=== PATIENT | male | born 1930 | race Caucasian/White ===

== ENCOUNTER 2019-07-14 20:04 | Inpatient (IN) | payer OTHER ==
[2019-07-14 20:20] VITALS: BMI 28.3
[2019-07-14 22:22] LABS: BASO % 0.3 % (0-2.0); EOS % 0.6 % (0-4.5); HEMATOCRIT 29.5 % (35.4-49); HEMOGLOBIN 9.6 GM/dL (11.7-16.9); LYMPH % 6.1 % (8-40); MCH 28.8 pg (25.7-33.7); MCHC 32.6 g/dl (32.0-35.9); MEAN CELL VOLUME 88.3 fl (80-96); MEAN PLT VOLUME 8.8 fl (7.5-11.1); MONO % 6.9 % (3.8-10.2); NEUT % 86.1 % (42.8-82.8); PLATELET COUNT 227 K/MM3 (134-434); RBC 3.35 M/mm3 (4.00-5.60); RDW 18.9 % (11.9-15.9)
[2019-07-14 22:45] LABS: INR 1.48 (0.83-1.09); PROTHROMBIN TIME (PATIENT) 17.5 SEC (9.7-13.0)
[2019-07-14 22:47] LABS: ACTIVATED PTT 41.9 SECONDS (25.2-36.5)
[2019-07-14 22:55] LABS: BILIRUBIN,TOTAL 10.4 mg/dL (0.2-1)
[2019-07-14 22:56] LABS: BLOOD UREA NITROGEN 28.6 mg/dL (7-18); CALCIUM 7.3 mg/dL (8.5-10.1); CREATININE 4.7 mg/dL (0.55-1.3); POTASSIUM 3.8 mmol/L (3.5-5.1); TOT PROT 5.9 g/dl (6.4-8.2)
[2019-07-14] MEDS ORDERED: SODIUM CHLORIDE 1,000 ML IV STA (23:08)
--- NOTE | 2019-07-14 23:15 | PDOC ---
Documentation entered by Jenni Uribe SCRIBE, acting as scribe for Carol Melendez MD. Carol Melendez MD: This documentation has been prepared by the Jojo bangura Sammi, SCRIBE, under my direction and personally reviewed by me in its entirety. I confirm that the documentation accurately reflects all work, treatment, procedures, and medical decision making performed by me. History of Present Illness - General Chief Complaint: Respiratory Stated Complaint: PNUEMONIA Time Seen by Provider: 07/14/19 21:24 - History of Present Illness Initial Comments: 07/14/19 21:25 The patient is an 88 year old male with PMH pancreatitis, type II DM, chronic kidney disease, anemia, CAD, BPH, GERD, who presents from [facility] for evaluation of left lower lobe infiltrate on xray. The patient denies any complaints at this time. The patient is DNR/DNI. Past History - Past Medical History Allergies/Adverse Reactions: Allergies Allergy/AdvReac Type Severity Reaction Status Date / Time Penicillins Allergy Verified 07/14/19 20:20 Home Medications: Ambulatory Orders Aspirin 81 mg PO DAILY 07/14/19 Atorvastatin Ca [Lipitor] 80 mg PO HS 07/14/19 Cholecalciferol (Vitamin D3) [Vitamin D3] 50,000 unit PO WEEKLY 07/14/19 Clopidogrel Bisulfate [Plavix] 75 mg PO DAILY 07/14/19 Ferrous Sulfate [Feosol] 325 mg PO DAILY 07/14/19 Furosemide [Lasix] 40 mg PO DAILY 07/14/19 Glipizide [Glucotrol Xl] 5 mg PO DAILY 07/14/19 Hydrocortisone 1% Cream [Hytone 1% Cream -] 1 applic TP QID 07/14/19 Insulin Glargine,Hum.rec.anlog [Lantus (nf)] 0 units SQ HS 07/14/19 Insulin Lispro [Humalog] 100 unit SQ TID 07/14/19 Metoprolol Tartrate [Lopressor -] 25 mg PO DAILY 07/14/19 Multivitamins [Tab-A-Vit -] 1 tab PO DAILY 07/14/19 Pantoprazole Sodium 40 mg PO DAILY 07/14/19 Sitagliptin Phosphate [Januvia] 25 mg PO DAILY 07/14/19 Tamsulosin HCl [Flomax] 0.4 mg PO DAILY 07/14/19 predniSONE [Deltasone -] 40 mg PO DAILY 07/14/19 Cardiac Disorders: Yes (CAD) COPD: No Diabetes: Yes GI Disorders: Yes (PANCREATITIS) Disorders: Yes (DIALYSIS) HTN: Yes Hypercholesterolemia: Yes - Psycho Social/Smoking Cessation Hx Smoking History: Never smoked Review of Systems - Review of Systems Comments:: 07/14/19 21:55 CONSTITUTIONAL: Absent: fever, no chills, no fatigue EYES: Absent: visual changes ENT: Absent: ear pain, no sore throat CARDIOVASCULAR: Absent: chest pain, no palpitations RESPIRATORY: Absent: cough, no SOB GI: Absent: abdominal pain, no nausea, no vomiting, no constipation, no diarrhea GENITOURINARY: Absent: dysuria, no frequency, no hematuria MUSKULOSKELETAL: Absent: back pain, no arthralgia, no myalgia SKIN: Absent: rash NEURO: Absent: headache *Physical Exam - Vital Signs Last Vital Signs Temp Pulse Resp BP Pulse Ox 97.2 F L 81 18 90/55 L 91 L 07/14/19 20:16 07/14/19 20:16 07/14/19 20:16 07/14/19 20:16 07/14/19 20:16 - Physical Exam Comments: 07/14/19 21:50 GENERAL: alert, conversant, jaundice 88 year old male, no acute distress Well-appearing, well-nourished. No apparent distress. HEENT: +icteric sclera Normocephalic, atraumatic. PERRL, EOM intact. NECK: No JVD CARDIOVASCULAR: Normal S1, S2. Regular rate and rhythm. PULMONARY: Clear to auscultation bilaterally. ABDOMEN: Soft, non-distended, non-tender. EXTREMITIES: +LE 1+ pitting edema Normal ROM in all four extremities. SKIN: +extremities and torso covered in macularpapular rash +jaundice Warm, dry. NEUROLOGICAL: alert and oriented x3 No focal neurological deficits. ED Treatment Course - LABORATORY CBC & Chemistry Diagram: 07/14/19 22:00 07/14/19 22:00 Medical Decision Making - Medical Decision Making 07/14/19 23:43 This 88-year-old male was brought in by ambulance from [facility] because of findings on a chest x-ray Left lower lobe infiltrate/effusion with development of a right lower lobe infiltrate and effusion. 1.3 cm dense nodule in the lateral right midlung The residential note said cold symptoms Patient is obviously jaundiced and has a maculopapular rash over most of his body. When asked if he has any complaints he does not have any specific complaints at this time he feels fine he does not have nausea or vomiting or diarrhea or shortness of breath chest pain according to him The residential papers did not reflect the reason for his jaundice and so I asked Dr. 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 and they found common bile duct obstruction but not a specific cause was not found , ? pancreatic cancer 07/14/19 23:54 Patient just recently developed kidney failure and has gone to dialysis for 6 weeks on Wednesdays and Fridays. Dr. Sarah Campos will make sure he has dialysis on Saturday07/15/19 01:24 07/15/19 01:29 07/15/19 01:34 Patient received IV antibiotics First troponin was 0.44 and will be repeated. Patient denies any chest pain or shortness of breath 07/15/19 01:35 His electrolytes show sodium of 131 and a normal potassium 3.8 07/15/19 01:48 elevated troponin ,will repeat troponin ,do repeat bgm admit tele OBS Discharge - Discharge Information Problems reviewed: Yes Clinical Impression/Diagnosis: Jaundice, persistent, Elevated LFTs, ESRD (end stage renal disease) on dialysis , Elevated troponin, Pleural effusion Condition: Fair - Admission Yes - Follow up/Referral Referrals: Maria L Robles [Primary Care Provider] - - Patient Discharge Instructions - Post Discharge Activity
--- NOTE | 2019-07-15 04:35 | HP ---
Admitting History and Physical - Primary Care Physician PCP: Dr. Viveros - Admission Chief Complaint: NH - xray with new pneumonia History of Present Illness: 88 year old male with PMH pancreatitis, type II DM, chronic kidney disease, anemia, CAD, BPH, GERD, who presents from [facility] for evaluation of left lower lobe infiltrate on xray. The patient denies any complaints at this time. Patient stated he received antibiotics at [place] and he developed rash to entire body. The patient is DNR/DNI. History Source: Patient Limitations to Obtaining History: No Limitations - Past Medical History Cardiovascular: Yes: CAD, Hyperlipdemia Gastrointestinal: Yes: GERD Renal/: Yes: Renal Inusuff, BPH, Hemodialysis Heme/Onc: Yes: Anemia Endocrine: Yes: Diabetes Mellitus, Other (pancreatitis) - Past Surgical History Past Surgical History: Yes: AV Fistula/Graft - Smoking History Smoking history: Never smoked - Alcohol/Substance Use History of Substance Use: reports: None - Social History Usual Living Arrangement: Yes: Senior Living ADL: Support Services History of Recent Travel: No Home Medications - Allergies Allergies/Adverse Reactions: Allergies Allergy/AdvReac Type Severity Reaction Status Date / Time Penicillins Allergy Verified 07/14/19 20:20 - Home Medications Home Medications: Ambulatory Orders Aspirin 81 mg PO DAILY 07/14/19 Atorvastatin Ca [Lipitor] 80 mg PO HS 07/14/19 Cholecalciferol (Vitamin D3) [Vitamin D3] 50,000 unit PO WEEKLY 07/14/19 Clopidogrel Bisulfate [Plavix] 75 mg PO DAILY 07/14/19 Ferrous Sulfate [Feosol] 325 mg PO DAILY 07/14/19 Furosemide [Lasix] 40 mg PO DAILY 07/14/19 Glipizide [Glucotrol Xl] 5 mg PO DAILY 07/14/19 Hydrocortisone 1% Cream [Hytone 1% Cream -] 1 applic TP QID 07/14/19 Insulin Glargine,Hum.rec.anlog [Lantus (nf)] 0 units SQ HS 07/14/19 Insulin Lispro [Humalog] 100 unit SQ TID 07/14/19 Metoprolol Tartrate [Lopressor -] 25 mg PO DAILY 07/14/19 Multivitamins [Tab-A-Vit -] 1 tab PO DAILY 07/14/19 Pantoprazole Sodium 40 mg PO DAILY 07/14/19 Sitagliptin Phosphate [Januvia] 25 mg PO DAILY 07/14/19 Tamsulosin HCl [Flomax] 0.4 mg PO DAILY 07/14/19 predniSONE [Deltasone -] 40 mg PO DAILY 07/14/19 Family Medical History Family History: Denies Review of Systems - Review of Systems Constitutional: reports: No Symptoms Eyes: reports: No Symptoms HENT: reports: No Symptoms Neck: reports: No Symptoms Cardiovascular: reports: No Symptoms Respiratory: reports: Cough Gastrointestinal: reports: No Symptoms Genitourinary: reports: No Symptoms Breasts: reports: No Symptoms Reported Musculoskeletal: reports: No Symptoms Integumentary: reports: Rash Neurological: reports: No Symptoms Endocrine: reports: No Symptoms Hematology/Lymphatic: reports: No Symptoms Psychiatric: reports: No Symptoms Physical Examination Vital Signs: Vital Signs Temperature 97.2 F L 07/14/19 20:16 Pulse Rate 85 07/15/19 04:07 Respiratory Rate 18 07/15/19 04:07 Blood Pressure 108/48 L 07/15/19 04:07 O2 Sat by Pulse Oximetry (%) 96 07/15/19 04:07 Constitutional: Yes: No Distress, Calm Eyes: Yes: Conjunctiva Clear, EOM Intact HENT: Yes: Atraumatic, Normocephalic Neck: Yes: Supple, Trachea Midline Cardiovascular: Yes: Regular Rate and Rhythm Respiratory: Yes: Regular, CTA Bilaterally Gastrointestinal: Yes: Normal Bowel Sounds, Soft Musculoskeletal: Yes: WNL Extremities: Yes: WNL Edema: No Peripheral Pulses WNL: Yes Integumentary: Yes: Other (maculopapular rash over most of his body) Neurological: Yes: Alert, Oriented Labs: CBC, BMP 07/14/19 22:00 07/14/19 22:00 Imaging - Results Chest X-ray: Report Reviewed (no acute infiltrate noted) Problem List - Problems (1) Elevated troponin Code(s): R79.89 - OTHER SPECIFIED ABNORMAL FINDINGS OF BLOOD CHEMISTRY (2) Elevated LFTs Code(s): R94.5 - ABNORMAL RESULTS OF LIVER FUNCTION STUDIES (3) ESRD (end stage renal disease) on dialysis Code(s): N18.6 - END STAGE RENAL DISEASE; Z99.2 - DEPENDENCE ON RENAL DIALYSIS (4) Jaundice, persistent Code(s): R17 - UNSPECIFIED JAUNDICE (5) Pleural effusion Code(s): J90 - PLEURAL EFFUSION, NOT ELSEWHERE CLASSIFIED (6) Elevated lactic acid level Code(s): R79.89 - OTHER SPECIFIED ABNORMAL FINDINGS OF BLOOD CHEMISTRY (7) Diabetes Code(s): E11.9 - TYPE 2 DIABETES MELLITUS WITHOUT COMPLICATIONS (8) Anemia Code(s): D64.9 - ANEMIA, UNSPECIFIED (9) CAD (coronary artery disease) Code(s): I25.10 - ATHSCL HEART DISEASE OF [place] CORONARY ARTERY W/O ANG PCTRS (10) HTN (hypertension) Code(s): I10 - ESSENTIAL (PRIMARY) HYPERTENSION (11) HLD (hyperlipidemia) Code(s): E78.5 - HYPERLIPIDEMIA, UNSPECIFIED (12) BPH (benign prostatic hyperplasia) Code(s): N40.0 - BENIGN PROSTATIC HYPERPLASIA WITHOUT LOWER URINRY TRACT SYMP (13) GERD (gastroesophageal reflux disease) Code(s): K21.9 - GASTRO-ESOPHAGEAL REFLUX DISEASE WITHOUT ESOPHAGITIS (14) Rash and nonspecific skin eruption Code(s): R21 - RASH AND OTHER NONSPECIFIC SKIN ERUPTION Assessment/Plan 88 year old male with PMH pancreatitis, type II DM, chronic kidney disease, anemia, CAD, BPH, GERD, who presents from [facility] for evaluation of left lower lobe infiltrate on xray. The patient denies any complaints at this time. # Elevated troponin admit tele OBS - #1 troponin was 0.44, # 2 (0.40) - no acute CP - follow up cardiology # Elevated LFTs # Jaundice persistent -as per ED conversation, had juandiced when at [facility] found common bile duct obstruction, ? pancreatic cancer -AST: 264, ALT: 161, Alkaline phos: 804 -Total bili: 10.4 -follow up GI # Elevated lactic acid - 2.6 resolved post 1 L IVF, #2 (1.2) # Pleural Effusion - no acute CP/SOB - CXR: show vascualr congestion, no acute infiltrate identified - fluid restriction # macupapular rash liekly allergy reaction ? pt not sure which abx - no acute reaction at this time - if needed consider prednisone / benadryl if needed # ESRD on HD (MWF) - dialysis as scheduled # DM -Glipizide 5 mg PO DAILY -Sitagliptin Phosphate 25 mg PO DAILY -monitor BGM -novolog sliding scale # Anemia - Ferrous Sulfate 325 mg PO DAILY -monitor H/H trend # CAD #HTN/HLD -Atorvastatin Ca 80 mg PO HS -Clopidogrel Bisulfate 75 mg PO DAILY -Furosemide 40 mg PO DAILY -Metoprolol Tartrate 25 mg PO DAILY # BPH -Tamsulosin HCl 0.4 mg PO DAILY # GERD -Pantoprazole Sodium 40 mg PO DAILY Dispo: tele obs Diet: renal, IFEANYI/NCS VTE: TEDs, early obs Visit type - Emergency Visit Emergency Visit: Yes ED Registration Date: 07/15/19 Care time: The patient presented to the Emergency Department on the above date and was hospitalized for further evaluation of their emergent condition. - New Patient This patient is new to me today: Yes Date on this admission: 07/15/19 - Critical Care Critical Care patient: No
[2019-07-15] MEDS ORDERED: ACETAMINOPHEN 325 MG TABLET (FP) PO PRN ×3 (04:59→20:42)
[2019-07-15] MEDS ORDERED: INSULIN SLIDING SCALE (NOVOLOG) 1 VIAL SQ SCH ×2 (07:00→16:30)
[2019-07-15] MEDS ORDERED: glipiZIDE-XL 5 MG TAB.ER.24 PO SCH (07:00)
[2019-07-15] MEDS ORDERED: TAMSULOSIN HCL 0.4 MG CAP PO SCH (08:30)
[2019-07-15] MEDS ORDERED: PANTOPRAZOLE 40 MG TABLET PO SCH (10:00)
[2019-07-15] MEDS ORDERED: CLOPIDOGREL BISULFATE 75 MG TABLET (FP) PO SCH (10:00)
[2019-07-15] MEDS ORDERED: FERROUS SO4 325 MG TABLET (FP) PO SCH ×2 (10:00→10:30)
[2019-07-15] MEDS ORDERED: ASPIRIN 81 MG CHEWABLE TABLETS PO SCH (10:00)
[2019-07-15] MEDS ORDERED: METOPROLOL TARTRATE 25 MG TABLET (FP) PO SCH (10:00)
[2019-07-15] MEDS ORDERED: PATIENT'S OWN MEDICATION (NON-FORMULARY) (Ferrous Sulfate [Feosol] 325 MG) PO SCH (10:00)
[2019-07-15] MEDS ORDERED: FUROSEMIDE 40 MG TABLET (FP) PO SCH (10:00)
--- NOTE | 2019-07-15 10:07 | PN ---
Progress Note, Physician Chief Complaint: AWAKE ALERT COMFORTABLE DENIES CHEST PAIN REPORTS HAVING SOB BUT IMPROVING - Current Medication List Current Medications: Active Medications Acetaminophen (Tylenol -) 650 mg PO Q6H PRN PRN Reason: PAIN LEVEL 1-5 Aspirin (Asa -) 81 mg PO DAILY [facility] Atorvastatin Calcium (Lipitor -) 80 mg PO HS [facility] Clopidogrel Bisulfate (Plavix -) 75 mg PO DAILY [facility] Ferrous Sulfate (Feosol -) 325 mg PO DAILY [facility] Furosemide (Lasix -) 40 mg PO DAILY [facility] Glipizide (Glucot[facility] Xl -) [facility] Last Admin: 07/15/19 09:00 Dose: Not Given Insulin Aspart (Novolog Vial Sliding Scale -) [facility]; Protocol Last Admin: 07/15/19 06:47 Dose: Not Given Metoprolol Tartrate (Lopressor -) 25 mg PO DAILY [facility] Pantoprazole Sodium (Protonix -) 40 mg PO DAILY [facility] Sitagliptin Phosphate (Januvia -) 25 mg PO [facility] Last Admin: 07/15/19 09:01 Dose: Not Given Tamsulosin HCl (Flomax -) 0.4 mg PO DAILY@0830 [facility] Last Admin: 07/15/19 09:04 Dose: 0.4 mg - Objective Vital Signs: Vital Signs Temperature 98 F 07/15/19 09:00 Pulse Rate 77 07/15/19 09:00 Respiratory Rate 18 07/15/19 09:00 Blood Pressure 89/46 L 07/15/19 09:00 O2 Sat by Pulse Oximetry (%) 97 07/15/19 09:00 Constitutional: Yes: Mild Distress Cardiovascular: Yes: Pulse Irregular Respiratory: Yes: Cough, Diminished, On Nasal O2 Gastrointestinal: Yes: Normal Bowel Sounds Genitourinary: Yes: Other Edema: No Integumentary: Yes: WNL Neurological: Yes: Pre-Existing Deficit Labs: CBC, BMP 07/14/19 22:00 07/14/19 22:00 INR, PTT INR 1.48 (0.83-1.09) H 07/14/19 22:00 Problem List - Problems (1) Anemia Code(s): D64.9 - ANEMIA, UNSPECIFIED (2) BPH (benign prostatic hyperplasia) Code(s): N40.0 - BENIGN PROSTATIC HYPERPLASIA WITHOUT LOWER URINRY TRACT SYMP (3) CAD (coronary artery disease) Code(s): I25.10 - ATHSCL HEART DISEASE OF [place] CORONARY ARTERY W/O ANG PCTRS (4) ESRD (end stage renal disease) on dialysis Code(s): N18.6 - END STAGE RENAL DISEASE; Z99.2 - DEPENDENCE ON RENAL DIALYSIS (5) Elevated LFTs Code(s): R94.5 - ABNORMAL RESULTS OF LIVER FUNCTION STUDIES (6) Elevated lactic acid level Code(s): R79.89 - OTHER SPECIFIED ABNORMAL FINDINGS OF BLOOD CHEMISTRY (7) Pleural effusion Code(s): J90 - PLEURAL EFFUSION, NOT ELSEWHERE CLASSIFIED Assessment/Plan NEPHROLOGY EVAL HD TODAY CARDIAC EVAL ON TELEMETRY DVT PROPHYLAXIS
[2019-07-15] MEDS ORDERED: PANTOPRAZOLE 40 MG TABLET ONE (10:15)
--- NOTE | 2019-07-15 12:15 | CONSULT ---
Consult - text type - Consultation Consultation Note: Renal consult for ERNIE on dialysis/ESRD This is a 88 year old gentleman with history of CKD with ERNIE now on dialysis (6 weeks), biliary obstruction with indwelling biliary drain, pancreatitis, anemia , CAD, BPH, GERD who who presented from [place] with diffuse erythematous rash after being on antibiotics for suspected PNA. Seen and examined in the ER. He currently offers no acute complaints. Last dialysis was Saturday. Has skin rash but puritic. Denies any shortness of breath, chest pain, fever, or chills. Makes a small amount of urine. PMHx: as above Allergies: PCN Social Hx: No T/A/D ROS: as per HPI, all other pertinent ros negative Home Medications Medication Instructions Recorded Aspirin 81 mg PO DAILY 07/14/19 Atorvastatin Ca [Lipitor] 80 mg PO HS 07/14/19 Cholecalciferol (Vitamin D3) 50,000 unit PO WEEKLY 07/14/19 [Vitamin D3] Clopidogrel Bisulfate [Plavix] 75 mg PO DAILY 07/14/19 Ferrous Sulfate [Feosol] 325 mg PO DAILY 07/14/19 Furosemide [Lasix] 40 mg PO DAILY 07/14/19 Glipizide [Glucotrol Xl] 5 mg PO DAILY 07/14/19 Hydrocortisone 1% Cream [Hytone 1% 1 applic TP QID 07/14/19 Cream -] Insulin Glargine,Hum.rec.anlog 0 units SQ HS 07/14/19 [Lantus (nf)] Insulin Lispro [Humalog] 100 unit SQ TID 07/14/19 Metoprolol Tartrate [Lopressor -] 25 mg PO DAILY 07/14/19 Multivitamins [Tab-A-Vit -] 1 tab PO DAILY 07/14/19 Pantoprazole Sodium 40 mg PO DAILY 07/14/19 Sitagliptin Phosphate [Januvia] 25 mg PO DAILY 07/14/19 Tamsulosin HCl [Flomax] 0.4 mg PO DAILY 07/14/19 predniSONE [Deltasone -] 40 mg PO DAILY 07/14/19 Vital Signs Temperature 98 F 07/15/19 09:00 Pulse Rate 77 07/15/19 09:00 Respiratory Rate 18 07/15/19 09:00 Blood Pressure 89/46 L 07/15/19 09:00 O2 Sat by Pulse Oximetry (%) 97 07/15/19 11:00 Intake & Output 07/12/19 07/13/19 07/14/19 07/15/19 23:59 23:59 23:59 23:59 Weight 74.843 kg NAD awake and alert neck supple, no JVD RRR CTA, no rales or wheeze soft NT/ND + erythemous rash on chest right IJ tunneled HD catheter right sided abmoinal drain no LE edema, clubbing or cyanosis CBC, BMP 07/14/19 22:00 07/14/19 22:00 Current Medications Acetaminophen (Tylenol -) 650 mg PO Q6H PRN PRN Reason: PAIN LEVEL 1-5 Aspirin (Asa -) 81 mg PO DAILY [facility] Last Admin: 07/15/19 10:00 Dose: 81 mg Atorvastatin Calcium (Lipitor -) 80 mg PO [facility] Clopidogrel Bisulfate (Plavix -) 75 mg PO DAILY [facility] Last Admin: 07/15/19 10:17 Dose: 75 mg Ferrous Sulfate (Feosol -) 325 mg PO DAILY [facility] Last Admin: 07/15/19 10:30 Dose: 325 mg Furosemide (Lasix -) 40 mg PO DAILY [facility] Last Admin: 07/15/19 10:00 Dose: 40 mg Glipizide (Glucotrol Xl -) 5 mg PO [facility] Last Admin: 07/15/19 09:00 Dose: Not Given Insulin Aspart (Novolog Vial Sliding Scale -) 1 vial SQ BIDAC [facility]; Protocol Last Admin: 07/15/19 06:47 Dose: Not Given Metoprolol Tartrate (Lopressor -) 25 mg PO DAILY [facility] Last Admin: 07/15/19 10:00 Dose: 25 mg Pantoprazole Sodium (Protonix -) 40 mg PO DAILY [facility] Last Admin: 07/15/19 10:00 Dose: 40 mg Sitagliptin Phosphate (Januvia -) 25 mg PO BK [facility] Last Admin: 07/15/19 09:01 Dose: Not Given Tamsulosin HCl (Flomax -) 0.4 mg PO DAILY@0830 [facility] Last Admin: 07/15/19 09:04 Dose: 0.4 mg 88 year old gentleman with history of CKD with ERNIE now on dialysis (6 weeks), biliary obstruction with indwelling biliary drain, pancreatitis, anemia, CAD, BPH, GERD who who presented from [place] with diffuse erythematous rash after being on antibiotics for suspected PNA. 1. ESRD on HD/ERNIE on CKD on dialysis 2. Erythemaous rash on skin, possible drug rash 3. Suspected PNA 4. Anemia 5. DM type 2 given low BP, will check labs and if no overt hyperkalemia or acidosis will defer dialysis as pt does not have overt volume overload Will reaccess for need for dialysis daily. Would continue fluid restriction of 1.2L daily Would give isotonic saline bolous at 250cc at a time to keep MAP > 65 ? need for antibiotics Will give HAMLET with dialysis for anemia management Continue oral DM medications Thank you Brandon Perez DO
--- NOTE | 2019-07-15 12:47 | EKG ---
Test Reason : Blood Pressure : / mmHG Vent. Rate : 077 BPM Atrial Rate : 043 BPM P-R Int : 000 ms QRS Dur : 132 ms QT Int : 492 ms P-R-T Axes : 000 -48 216 degrees QTc Int : 556 ms POOR DATA QUALITY, INTERPRETATION MAY BE ADVERSELY AFFECTED WIDE QRS RHYTHM LEFT AXIS DEVIATION NON-SPECIFIC INTRA-VENTRICULAR CONDUCTION BLOCK CANNOT RULE OUT SEPTAL INFARCT , AGE UNDETERMINED T WAVE ABNORMALITY, CONSIDER ANTEROLATERAL ISCHEMIA ABNORMAL ECG WHEN COMPARED WITH ECG OF 19-MAY-2004 12:14, WIDE QRS RHYTHM HAS REPLACED SINUS RHYTHM Confirmed by JULIO CÉSAR EAST, ROSE MARY ([id number]) on 07/15/2019 12:46:50 PM Referred By: Confirmed By:ROSE MARY ANGELA MD
[2019-07-15 14:52] LABS: BLOOD UREA NITROGEN 33.7 mg/dL (7-18); CALCIUM 7.1 mg/dL (8.5-10.1); CREATININE 5.2 mg/dL (0.55-1.3); POTASSIUM 3.7 mmol/L (3.5-5.1)
--- NOTE | 2019-07-15 15:16 | CON.CARD ---
Consult Consult Specialty:: Cardiology Referred by:: Dr. Myrick Reason for Consultation:: elevated troponin - History of Present Illness Chief Complaint: sent for abnormal Cxray History of Present Illness: 88 year old man with a pmh of pancreatitis, type II DM, chronic kidney disease, anemia, CAD with prior stents, BPH, GERD, sent from [facility] for evaluation of left lower lobe infiltrate on xray. He was started on antibiotics at [place] and he developed rash to entire body. The patient was brought to the ER where he denied any complaints. He was given antibiotics. A troponin level was checked (unclear indication for the test) and was mildly elevated. repeat troponin level was lower. EKG did not show acute changes. pt was seen and examined today in [facility]. denies having any chest pain or sob. States that he follows regularly with his brand strategist Dr. Rojo at [place] whom he saw 3 months ago and has an upcoming appointment with. - History Source History Provided By: Patient Limitations to Obtaining History: No Limitations - Past Medical History Cardio/Vascular: Yes: CAD, Hyperlipdemia Gastrointestinal: Yes: GERD Renal/: Yes: Renal Inusuff, BPH, Hemodialysis Endocrine: Yes: Diabetes Mellitus, Other (pancreatitis) - Past Surgical History Past Surgical History: Yes: AV Fistula/Graft - Alcohol/Substance Use History of Substance Use: reports: None - Smoking History Smoking history: Never smoked - Social History ADL: Support Services History of Recent Travel: No Home Medications - Allergies Allergies/Adverse Reactions: Allergies Allergy/AdvReac Type Severity Reaction Status Date / Time Penicillins Allergy Verified 07/14/19 20:20 - Home Medications Home Medications: Ambulatory Orders Aspirin 81 mg PO DAILY 07/14/19 Atorvastatin Ca [Lipitor] 80 mg PO HS 07/14/19 Cholecalciferol (Vitamin D3) [Vitamin D3] 50,000 unit PO WEEKLY 07/14/19 Clopidogrel Bisulfate [Plavix] 75 mg PO DAILY 07/14/19 Ferrous Sulfate [Feosol] 325 mg PO DAILY 07/14/19 Furosemide [Lasix] 40 mg PO DAILY 07/14/19 Glipizide [Glucotrol Xl] 5 mg PO DAILY 07/14/19 Hydrocortisone 1% Cream [Hytone 1% Cream -] 1 applic TP QID 07/14/19 Insulin Glargine,Hum.rec.anlog [Lantus (nf)] 0 units SQ HS 07/14/19 Insulin Lispro [Humalog] 100 unit SQ TID 07/14/19 Metoprolol Tartrate [Lopressor -] 25 mg PO DAILY 07/14/19 Multivitamins [Tab-A-Vit -] 1 tab PO DAILY 07/14/19 Pantoprazole Sodium 40 mg PO DAILY 07/14/19 Sitagliptin Phosphate [Januvia] 25 mg PO DAILY 07/14/19 Tamsulosin HCl [Flomax] 0.4 mg PO DAILY 07/14/19 predniSONE [Deltasone -] 40 mg PO DAILY 07/14/19 Review of Systems - Review of Systems Constitutional: denies: No Symptoms, Chills, Diaphoresis, Fever, Lethargy, Loss of Appetite, Malaise, Night Sweats, Unintentional Wgt. Loss, Weakness, Other Eyes: denies: No Symptoms, Blind Spots, Blurred Vision, Double Vision, Eye Pain , Floaters, Photophobia, Recent Change in Vision, Other HENT: denies: No Symptoms, Difficult Swallowing, Ear Discharge, Ear Pain, Epistaxis, Gingival Bleeding, Hearing Loss, Mouth Swelling, Nasal Congestion, Ocular Prosthesis, Throat Pain, Toothache, Ringing in Ears, Other Neck: denies: No Symptoms, Decreased ROM, Lumps, Pain on Movement, Stiffness, Swollen Glands, Tenderness, Other Cardiovascular: denies: No Symptoms, Chest Pain, Edema, Palpitations, Shortness of Breath, Other Respiratory: denies: No Symptoms, Cough, Exercise Intolerance, Hemoptysis, Orthopnea, PND, Snoring, SOB, SOB on Exertion, Wheezing, Other Gastrointestinal: denies: No Symptoms, Abdominal Pain, Bloating, Constipation, Diarrhea, Dysphagia, Indigestion, Melena, Nausea, Rectal Bleeding, Vomiting, Vomiting Blood, Other Genitourinary: denies: No Symptoms, Burning, Discharge, Dysuria, Flank Pain, Frequency, Hematuria, Incontinence, Lesions, Menses, Pain, Testicular Mass, Testicular Pain, Testicular Swelling, Urgency, Vaginal Bleeding, Other Breasts: denies: No Symptoms Reported, See HPI, Breast Implants, Discharge from Nipple, Lumps, Pain, Skin Changes, Other Musculoskeletal: denies: No Symptoms, Back Pain, Crepitus, Decreased ROM, Extremity Pain, Joint Pain, Joint Swelling, Muscle Pain, Muscle Cramps, Muscle Weakness, Other Integumentary: denies: No Symptoms, Blister, Bruising, Change in Color, Eczema, Erythema, Incision, Lesions, Lump, Pallor, Pruritis, Rash, Wound, Other Neurological: denies: No Symptoms, Change in LOC, Change in Speech, Confusion, Dizziness, Headache, Incoordination, Numbness, Parasthesia, Pre-Existing Deficit , Seizure, Syncope, Tremors, Unsteady Gait, Weakness, Other Endocrine: denies: No Symptoms, Excessive Sweating, Flushing, Increased Hunger, Increased Thirst, Intolerance to Cold, Intolerance to Heat, Unexplained Weight Gain, Unexplained Weight Loss, Other Hematology/Lymphatic: denies: No Symptoms, Easily Bruised, Excessive Bleeding, Swollen Glands, Other Psychiatric: denies: No Symptoms, Altered Sleep Pattern, Anxiety, Depression, Hallucinations, Panic, Paranoia, Suicidal, Other - Risk Factors Known Risk Factors: Yes: Hypercholesterolemia, Hypertension Vital Signs: Vital Signs Temperature 98 F 07/15/19 13:30 Pulse Rate 76 07/15/19 13:30 Respiratory Rate 18 07/15/19 13:30 Blood Pressure 104/72 07/15/19 13:30 O2 Sat by Pulse Oximetry (%) 99 07/15/19 13:30 Constitutional: Yes: No Distress, Calm Eyes: Yes: Conjunctiva Clear, EOM Intact HENT: Yes: Atraumatic, Normocephalic Neck: Yes: Supple, Trachea Midline Respiratory: Yes: Regular, CTA Bilaterally Gastrointestinal: Yes: Normal Bowel Sounds, Soft Cardiovascular: Yes: Regular Rate and Rhythm. No: Bradycardia, Tachycardia, Pulse Irregular, Gallop, Rub, Varicosities JVD: No Carotid Bruit: No PMI: Non-Displaced Heart Sounds: Yes: S1, S2. No: Split S2, S3, S4, Clicks, Gallop, Rub, Bruit Murmur: No: Systolic Murmur, Diastolic Murmur Extremities: Yes: WNL Edema: Yes Edema: LLE: Trace, RLE: Trace Peripheral Pulses WNL: Yes Neurological: Yes: Alert, Oriented Psychiatric: Yes: Alert, Oriented - Other Data Labs, Other Data: CBC, BMP 07/14/19 22:00 07/15/19 14:10 INR, PTT INR 1.48 (0.83-1.09) H 07/14/19 22:00 Troponin, BNP 07/14/19 07/15/19 22:00 01:30 Troponin I 0.44 H 0.40 H Troponin, BNP 07/14/19 07/15/19 22:00 01:30 Troponin I 0.44 H 0.40 H IVCD, septal infarct, possible anterolateral ischemia. Imaging - Results Chest X-ray: Report Reviewed, Image Reviewed EKG: Report Reviewed, Image Reviewed Other: Report Reviewed, Image Reviewed Assessment/Plan 88 year old man with a pmh of pancreatitis, type II DM, chronic kidney disease, anemia, CAD with prior stents, BPH, GERD, sent from [facility] for evaluation of left lower lobe infiltrate on xray. He was started on antibiotics at [place] and he developed rash to entire body. The patient was brought to the ER where he denied any complaints. He was given antibiotics. A troponin level was checked (unclear indication for the test) and was mildly elevated. repeat troponin level was lower. EKG did not show acute changes. pt was seen and examined today in [place]. denies having any chest pain or sob. States that he follows regularly with his brand strategist Dr. Rojo at [place] whom he saw 3 months ago and has an upcoming appointment with. Elevated troponin-unclear indication for test, repeat lower -not c/w ACS -mildly elevated with ESRD -no symptoms -not in CHF -pt has known CAD with prior stents -denies not require tele admission -does not require additional inpatient cardiac work up. -pt has appointment with his brand strategist Dr. Rojo will see as needed. Please call with any additional questions.
[2019-07-15] MEDS ORDERED: ATORVASTATIN CA 80 MG TABLET (FP) PO SCH ×2 (22:00)
[2019-07-15] MEDS: ATORVASTATIN CA 80 MG TABLET (FP) PO SCH (22:21)
[2019-07-16] MEDS ORDERED: glipiZIDE-XL 5 MG TAB.ER.24 PO SCH ×2 (07:00)
[2019-07-16] MEDS ORDERED: INSULIN SLIDING SCALE (NOVOLOG) 1 VIAL SQ SCH (07:00)
[2019-07-16] MEDS ORDERED: TAMSULOSIN HCL 0.4 MG CAP PO SCH (08:30)
[2019-07-16] MEDS: TAMSULOSIN HCL 0.4 MG CAP PO SCH (08:37)
[2019-07-16] MEDS ORDERED: DEXTROSE 50%-WATER - 25 GM/50 ML VIAL IVPUSH PRN (08:40)
--- NOTE | 2019-07-16 09:03 | CON.GI ---
Consult Consult Specialty:: GI Referred by:: Donna Boucher NP Reason for Consultation:: Elevated LFTs - History of Present Illness History of Present Illness: Patient is an 88 y/o male with past medical history of pancreatitis, type 2 DM, CKD, Anemia, CAD, BPH, GERD. Consult was placed for elevated LFTs on admission. Labs showed AST 264, ALT 161, Alk Phos 804, and T. Bili 10.4. Patient has biliary tube to RUQ draining dark bilious fluid to leg bag. He says the tube was placed by Dr White at [facility]. Patient denies history of ETOH or illicit drug use. Denies nausea, vomiting, diarrhea, constipation, abdominal pain or rectal bleeding. Patient was under the care of Dr White at [facility]. Attempted ERCP. 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 - History Source History Provided By: Patient Limitations to Obtaining History: No Limitations - Past Medical History Cardio/Vascular: Yes: CAD, Hyperlipdemia Gastrointestinal: Yes: GERD Renal/: Yes: Renal Inusuff, BPH, Hemodialysis Endocrine: Yes: Diabetes Mellitus, Other (pancreatitis) - Past Surgical History Past Surgical History: Yes: AV Fistula/Graft - Alcohol/Substance Use Hx Alcohol Use: No History of Substance Use: reports: None - Smoking History Smoking history: Never smoked - Social History ADL: Support Services History of Recent Travel: No Home Medications - Allergies Allergies/Adverse Reactions: Allergies Allergy/AdvReac Type Severity Reaction Status Date / Time Penicillins Allergy Verified 07/14/19 20:20 - Home Medications Home Medications: Ambulatory Orders Aspirin 81 mg PO DAILY 07/14/19 Atorvastatin Ca [Lipitor] 80 mg PO HS 07/14/19 Cholecalciferol (Vitamin D3) [Vitamin D3] 50,000 unit PO WEEKLY 07/14/19 Clopidogrel Bisulfate [Plavix] 75 mg PO DAILY 07/14/19 Ferrous Sulfate [Feosol] 325 mg PO DAILY 07/14/19 Furosemide [Lasix] 40 mg PO DAILY 07/14/19 Glipizide [Glucotrol Xl] 5 mg PO DAILY 07/14/19 Hydrocortisone 1% Cream [Hytone 1% Cream -] 1 applic TP QID 07/14/19 Insulin Glargine,Hum.rec.anlog [Lantus (nf)] 0 units SQ HS 07/14/19 Insulin Lispro [Humalog] 100 unit SQ TID 07/14/19 Metoprolol Tartrate [Lopressor -] 25 mg PO DAILY 07/14/19 Multivitamins [Tab-A-Vit -] 1 tab PO DAILY 07/14/19 Pantoprazole Sodium 40 mg PO DAILY 07/14/19 Sitagliptin Phosphate [Januvia] 25 mg PO DAILY 07/14/19 Tamsulosin HCl [Flomax] 0.4 mg PO DAILY 07/14/19 predniSONE [Deltasone -] 40 mg PO DAILY 07/14/19 Review of Systems - Review of Systems Constitutional: reports: No Symptoms Eyes: reports: No Symptoms HENT: reports: No Symptoms Neck: reports: No Symptoms Cardiovascular: reports: No Symptoms Respiratory: reports: No Symptoms Gastrointestinal: reports: No Symptoms Genitourinary: reports: No Symptoms Breasts: reports: No Symptoms Reported Musculoskeletal: reports: No Symptoms Neurological: reports: No Symptoms Endocrine: reports: No Symptoms Hematology/Lymphatic: reports: No Symptoms Psychiatric: reports: No Symptoms Physical Exam-GI Vital Signs: Vital Signs Temperature 99.0 F 07/16/19 05:00 Pulse Rate 81 07/16/19 05:00 Respiratory Rate 20 07/16/19 05:00 Blood Pressure 99/59 L 07/16/19 05:00 O2 Sat by Pulse Oximetry (%) 100 07/15/19 21:00 Constitutional: Yes: Well Nourished, No Distress, Calm, Other (Jaundice) Eyes: Yes: Sclera Icterus HENT: Yes: Atraumatic Cardiovascular: Yes: Regular Rate and Rhythm Respiratory: Yes: Regular, CTA Bilaterally Gastrointestinal Inspection: Yes: Distention, Other (Biliary tube RUQ). No: WNL , Ascites, Hernia, Scars ...Auscultate: Yes: Normoactive Bowel Sounds. No: Hyperactive Bowel Sounds, Hypoactive Bowel Sounds, No Bowel Sounds, Other ...Palpate: Yes: Soft, Other (no tenderness). No: Firm/Rigid, Guarding, Hepatomegaly, Mass, Pulsatile Mass, Splenomegaly, Tenderness, Tenderness, Epigastium, Tenderness, Rebound ...Percussion: Yes: Other (high tympany). No: Dullness, Fluid Wave, Tympanitic Neurological: Yes: Alert, Oriented Psychiatric: Yes: Alert, Oriented Labs: CBC, BMP 07/14/19 22:00 07/15/19 14:10 INR, PTT INR 1.48 (0.83-1.09) H 07/14/19 22:00 Problem List - Problems (1) Elevated LFTs Assessment/Plan: >Abdominal US to R/O dilated CBD Code(s): R94.5 - ABNORMAL RESULTS OF LIVER FUNCTION STUDIES (2) Common bile duct (CBD) stricture Assessment/Plan: r/o clogged biliary stent R> consult Dr Santana for cholangiogram Ca19-9 Code(s): K83.1 - OBSTRUCTION OF BILE DUCT
[2019-07-16] MEDS ORDERED: METOPROLOL TARTRATE 25 MG TABLET (FP) PO SCH ×2 (10:00)
[2019-07-16] MEDS ORDERED: FUROSEMIDE 40 MG TABLET (FP) PO SCH ×2 (10:00)
[2019-07-16] MEDS ORDERED: PANTOPRAZOLE 40 MG TABLET PO SCH (10:00)
[2019-07-16] MEDS ORDERED: CLOPIDOGREL BISULFATE 75 MG TABLET (FP) PO SCH (10:00)
[2019-07-16] MEDS ORDERED: ASPIRIN 81 MG CHEWABLE TABLETS PO SCH (10:00)
[2019-07-16] MEDS ORDERED: FERROUS SO4 325 MG TABLET (FP) PO SCH (10:00)
[2019-07-16] MEDS ORDERED: SODIUM CHLORIDE 500 ML IV STA (11:16)
[2019-07-16] MEDS: CLOPIDOGREL BISULFATE 75 MG TABLET (FP) PO SCH (11:45)
[2019-07-16] MEDS: ASPIRIN 81 MG CHEWABLE TABLETS PO SCH (11:45)
[2019-07-16] MEDS: FERROUS SO4 325 MG TABLET (FP) PO SCH (11:46)
[2019-07-16] MEDS: PANTOPRAZOLE 40 MG TABLET PO SCH (11:47)
--- NOTE | 2019-07-16 12:09 | CON.PULM ---
Consult Consult Specialty:: PULMONARY Referred by:: Dr Viveros Reason for Consultation:: shortness of breath - History of Present Illness Chief Complaint: rash History of Present Illness: 88yo male with h/o DM, chronic pancreatitis, ESRD on HD, CAD, GERD, anemia who was [facility] for [facility] infiltrate seen on CXR. He was started on antibiotics which gave him a diffuse maculopapular rash. He denies any shortness of breath or chest pain. He has a chronic nonproductive cough which is unchanged. No fevers, chills or sweats. Found to have elevated LFTs on labwork and CXR showing left basilar infiltrate vs atelectasis. - History Source History Provided By: Patient, Medical Record Limitations to Obtaining History: No Limitations - Past Medical History Cardio/Vascular: Yes: CAD, Hyperlipdemia Gastrointestinal: Yes: GERD Renal/: Yes: Renal Inusuff, BPH, Hemodialysis Endocrine: Yes: Diabetes Mellitus, Other (pancreatitis) - Past Surgical History Past Surgical History: Yes: AV Fistula/Graft - Alcohol/Substance Use Hx Alcohol Use: No History of Substance Use: reports: None - Smoking History Smoking history: Never smoked - Social History ADL: Support Services History of Recent Travel: No Home Medications - Allergies Allergies/Adverse Reactions: Allergies Allergy/AdvReac Type Severity Reaction Status Date / Time Penicillins Allergy Verified 07/14/19 20:20 - Home Medications Home Medications: Ambulatory Orders Aspirin 81 mg PO DAILY 07/14/19 Atorvastatin Ca [Lipitor] 80 mg PO HS 07/14/19 Cholecalciferol (Vitamin D3) [Vitamin D3] 50,000 unit PO WEEKLY 07/14/19 Clopidogrel Bisulfate [Plavix] 75 mg PO DAILY 07/14/19 Ferrous Sulfate [Feosol] 325 mg PO DAILY 07/14/19 Furosemide [Lasix] 40 mg PO DAILY 07/14/19 Glipizide [Glucotrol Xl] 5 mg PO DAILY 07/14/19 Hydrocortisone 1% Cream [Hytone 1% Cream -] 1 applic TP QID 07/14/19 Insulin Glargine,Hum.rec.anlog [Lantus (nf)] 0 units SQ HS 07/14/19 Insulin Lispro [Humalog] 100 unit SQ TID 07/14/19 Metoprolol Tartrate [Lopressor -] 25 mg PO DAILY 07/14/19 Multivitamins [Tab-A-Vit -] 1 tab PO DAILY 07/14/19 Pantoprazole Sodium 40 mg PO DAILY 07/14/19 Sitagliptin Phosphate [Januvia] 25 mg PO DAILY 07/14/19 Tamsulosin HCl [Flomax] 0.4 mg PO DAILY 07/14/19 predniSONE [Deltasone -] 40 mg PO DAILY 07/14/19 Review of Systems - Review of Systems Constitutional: denies: Chills, Fever Eyes: denies: Recent Change in Vision HENT: denies: Nasal Congestion, Throat Pain Neck: denies: Stiffness, Tenderness Cardiovascular: denies: Chest Pain, Shortness of Breath Respiratory: reports: Cough. denies: SOB, Wheezing Gastrointestinal: denies: Abdominal Pain, Nausea, Vomiting Genitourinary: denies: Dysuria, Hematuria Neurological: denies: Dizziness, Headache Endocrine: denies: Unexplained Weight Loss Physical Exam Vital Sings: Vital Signs Temperature 99.0 F 07/16/19 05:00 Pulse Rate 81 07/16/19 05:00 Respiratory Rate 20 07/16/19 05:00 Blood Pressure 99/59 L 07/16/19 05:00 O2 Sat by Pulse Oximetry (%) 100 07/15/19 21:00 Constitutional: Yes: Calm Eyes: Yes: Conjunctiva Clear, EOM Intact HENT: Yes: Atraumatic, Normocephalic Neck: Yes: Supple, Trachea Midline Cardiovascular: Yes: Regular Rate and Rhythm Respiratory: Yes: Diminished (decreased breath sounds at the bases) ...Clubbing: No Gastrointestinal: Yes: Normal Bowel Sounds, Soft. No: Tenderness Edema: No Labs: CBC, BMP 07/14/19 22:00 07/15/19 14:10 Imaging - Results Chest X-ray: Report Reviewed, Image Reviewed (bibasilar atelectasis, left effusion) Assessment/Plan Elevated LFTs ESRD on HD Drug Rash Atelectasis Lactic Acidosis DM CAD +Troponins likely Demand Ischemia GERD BPH - pt without symptoms of pneumonia, no fevers or leukocytosis - would monitor off antibiotics at this time - GI work up in progress - HD per renal - DVT prophylaxis Thank you for this consult Onel Bacon MD
[2019-07-16 12:31] LABS: BASO % 0.6 % (0-2.0); EOS % 15.9 % (0-4.5); HEMOGLOBIN 9.5 GM/dL (11.7-16.9); LYMPH % 5.9 % (8-40); MCHC 32.9 g/dl (32.0-35.9); MEAN CELL VOLUME 88.2 fl (80-96); MEAN PLT VOLUME 8.9 fl (7.5-11.1); MONO % 5.2 % (3.8-10.2); NEUT % 72.4 % (42.8-82.8); PLATELET COUNT 198 K/MM3 (134-434); RBC 3.29 M/mm3 (4.00-5.60); RDW 19.2 % (11.9-15.9); WHITE BLOOD COUNT 10.6 K/mm3 (4.0-10.0)
[2019-07-16 12:59] LABS: BLOOD UREA NITROGEN 40.5 mg/dL (7-18); CREATININE 5.9 mg/dL (0.55-1.3); POTASSIUM 3.6 mmol/L (3.5-5.1)
[2019-07-16 13:16] LABS: CALCIUM 6.7 mg/dL (8.5-10.1)
--- NOTE | 2019-07-16 14:06 | PN ---
Progress Note, Physician Chief Complaint: patient seen and examiend low BP in morining got NS 500cc bolus - Current Medication List Current Medications: Active Medications Acetaminophen (Tylenol -) 650 mg PO Q6H PRN PRN Reason: PAIN LEVEL 1-5 Aspirin (Asa -) 81 mg PO DAILY [facility] Last Admin: 07/16/19 11:45 Dose: 81 mg Atorvastatin Calcium (Lipitor -) 80 mg PO HS [facility] Last Admin: 07/15/19 22:21 Dose: 80 mg Clopidogrel Bisulfate (Plavix -) 75 mg PO DAILY [facility] Last Admin: 07/16/19 11:45 Dose: 75 mg Dextrose (D50w (Vial) -) 25 gm IVPUSH Q4H PRN PRN Reason: HYPOGLYCEMIA Ferrous Sulfate (Feosol -) 325 mg PO DAILY [facility] Last Admin: 07/16/19 11:46 Dose: 325 mg Hydrocortisone (Hytone 0.5% Cream -) 1 applic TP DAILY PRN PRN Reason: FOR ITCHING Insulin Aspart (Novolog Vial Sliding Scale -) 1 vial SQ BIDAC [facility]; Protocol Last Admin: 07/16/19 06:19 Dose: Not Given Pantoprazole Sodium (Protonix -) 40 mg PO DAILY [facility] Last Admin: 07/16/19 11:47 Dose: 40 mg Tamsulosin HCl (Flomax -) 0.4 mg PO DAILY@0830 [facility] Last Admin: 07/16/19 08:37 Dose: 0.4 mg - Objective Vital Signs: Vital Signs Temperature 99.0 F 07/16/19 05:00 Pulse Rate 81 07/16/19 05:00 Respiratory Rate 20 07/16/19 05:00 Blood Pressure 99/59 L 07/16/19 05:00 O2 Sat by Pulse Oximetry (%) 100 07/15/19 21:00 Constitutional: Yes: Calm Cardiovascular: Yes: Regular Rate and Rhythm, S1, S2 Respiratory: Yes: CTA Bilaterally Gastrointestinal: Yes: Normal Bowel Sounds, Soft Edema: No Labs: CBC, BMP 07/16/19 12:05 07/16/19 12:05 INR, PTT INR 1.48 (0.83-1.09) H 07/14/19 22:00 Problem List - Problems (1) Anemia Assessment/Plan: iron may need epogen with HD Code(s): D64.9 - ANEMIA, UNSPECIFIED (2) BPH (benign prostatic hyperplasia) Assessment/Plan: flomax Code(s): N40.0 - BENIGN PROSTATIC HYPERPLASIA WITHOUT LOWER URINRY TRACT SYMP (3) Diabetes Assessment/Plan: hold off oral hypoglycemic low bgm Code(s): E11.9 - TYPE 2 DIABETES MELLITUS WITHOUT COMPLICATIONS (4) Hypotension Assessment/Plan: atop all BP medication got ivf NS 500cc bolus today Code(s): I95.9 - HYPOTENSION, UNSPECIFIED (5) ESRD (end stage renal disease) on dialysis Assessment/Plan: givcen hypotension no HD as yet low calcium 6.7 noted corrected calcium 8.3 Code(s): N18.6 - END STAGE RENAL DISEASE; Z99.2 - DEPENDENCE ON RENAL DIALYSIS
[2019-07-16 14:13] LABS: ALBUMIN 1.7 g/dl (3.4-5.0); BILIRUBIN,DIRECT 7.1 mg/dL (0.0-0.2); BILIRUBIN,TOTAL 8.2 mg/dL (0.2-1); TOT PROT 4.9 g/dl (6.4-8.2)
[2019-07-16] MEDS ORDERED: SODIUM CHLORIDE 250 ML IV PRN (15:36)
--- NOTE | 2019-07-16 15:36 | PN ---
Progress Note (short form) - Note Progress Note: Renal follow up for ESRD on HD Seen and examined at the bedside awake and alert offers no acute complaints feel hungry no sob but is on NC O2 Vital Signs Temperature 99.0 F 07/16/19 05:00 Pulse Rate 81 07/16/19 05:00 Respiratory Rate 20 07/16/19 05:00 Blood Pressure 99/59 L 07/16/19 05:00 O2 Sat by Pulse Oximetry (%) 100 07/15/19 21:00 Intake & Output 07/13/19 07/14/19 07/15/19 07/16/19 23:59 23:59 23:59 23:59 Intake Total 600 Output Total 500 150 Balance 100 -150 Weight 74.843 kg 74.797 kg 76.022 kg NAD RRR CTA, no rales or wheeze soft NT/ND rash improving right IJ tunneled HD catheter right sided abdominal drain no LE edema, clubbing or cyanosis CBC, BMP 07/16/19 12:05 07/16/19 12:05 Current Medications Acetaminophen (Tylenol -) 650 mg PO Q6H PRN PRN Reason: PAIN LEVEL 1-5 Aspirin (Asa -) 81 mg PO DAILY [facility] Last Admin: 07/16/19 11:45 Dose: 81 mg Atorvastatin Calcium (Lipitor -) 80 mg PO HS [facility] Last Admin: 07/15/19 22:21 Dose: 80 mg Clopidogrel Bisulfate (Plavix -) 75 mg PO DAILY [facility] Last Admin: 07/16/19 11:45 Dose: 75 mg Dextrose (D50w (Vial) -) 25 gm IVPUSH Q4H PRN PRN Reason: HYPOGLYCEMIA Ferrous Sulfate (Feosol -) 325 mg PO DAILY [facility] Last Admin: 07/16/19 11:46 Dose: 325 mg Hydrocortisone (Hytone 0.5% Cream -) 1 applic TP DAILY PRN PRN Reason: FOR ITCHING Pantoprazole Sodium (Protonix -) 40 mg PO DAILY [facility] Last Admin: 07/16/19 11:47 Dose: 40 mg Tamsulosin HCl (Flomax -) 0.4 mg PO DAILY@0830 [facility] Last Admin: 07/16/19 08:37 Dose: 0.4 mg 88 year old gentleman with history of CKD with ERNIE now on dialysis (6 weeks), biliary obstruction with indwelling biliary drain, pancreatitis, anemia, CAD, BPH, GERD who who presented from [place] with diffuse erythematous rash after being on antibiotics for suspected PNA. 1. ESRD on HD/ERNIE on CKD on dialysis 2. Erythemaous rash on skin, possible drug rash 3. Suspected PNA 4. Anemia 5. DM type 2 Laboratory studies reviewed, no acute need for HD today (no hyperkalmeia, acidosis or volume overload) given he still has marginal BP requiring IVF will defer dialysis to tomorrow Would continue fluid restriction of 1.2L daily Continue fluid bolous as needed to maintain BP Will give HAMLET with dialysis for anemia management Continue oral DM medications Thank you Brandon Perez DO
[2019-07-16] MEDS: ATORVASTATIN CA 80 MG TABLET (FP) PO SCH (21:19)
[2019-07-16] MEDS ORDERED: DEXTROSE 50%-WATER - 25 GM/50 ML VIAL ONE (21:56)
[2019-07-16] MEDS: DEXTROSE 50%-WATER - 25 GM/50 ML VIAL IVPUSH PRN (21:59)
[2019-07-17] MEDS: DEXTROSE 50%-WATER - 25 GM/50 ML VIAL IVPUSH PRN (02:57)
[2019-07-17] MEDS ORDERED: DEXTROSE 50%-WATER - 25 GM/50 ML VIAL ONE (04:55)
--- NOTE | 2019-07-17 07:37 | PN.GI ---
GI Progress Note Subjective: Patient denies nausea, vomiting, abdominal pain, constipation, rectal bleeding or melena. Abdominal US shows thick walled gall bladder with small calculi and biliary sludge, mild hepatomegaly with diffuse fatty infiltration liver, s/p biliary stent with prominent CBD. Pending this morning labs to monitor trend of LFTs. CEA and CA 19-9 ordered. - Objective Vital Signs: Vital Signs Temperature 99.1 F 07/17/19 04:00 Pulse Rate 97 H 07/17/19 04:00 Respiratory Rate 18 07/17/19 04:00 Blood Pressure 91/41 L 07/17/19 04:00 O2 Sat by Pulse Oximetry (%) 97 07/16/19 21:00 Constitutional: No Distress, Calm, Other (jaundice) Eyes: Yes: Conjunctiva Clear HENT: Yes: Atraumatic Cardiovascular: Yes: Regular Rate and Rhythm Respiratory: Yes: Regular, CTA Bilaterally Gastrointestinal Inspection: Yes: Distention. No: WNL, Ascites, Hernia, Scars, Other ...Auscultate: Yes: Normoactive Bowel Sounds. No: Hyperactive Bowel Sounds, Hypoactive Bowel Sounds, No Bowel Sounds, Other ...Palpate: Yes: Soft, Other (no tenderness). No: Firm/Rigid, Guarding, Hepatomegaly, Mass, Pulsatile Mass, Splenomegaly, Tenderness, Tenderness, Epigastium, Tenderness, Rebound ...Percussion: Yes: Other (high tympany). No: Dullness, Fluid Wave, Tympanitic Neurological: Yes: Alert, Oriented Psychiatric: Yes: Alert, Oriented Labs: CBC, BMP 07/16/19 12:05 07/16/19 12:05 INR, PTT INR 1.48 (0.83-1.09) H 07/14/19 22:00 Active Medications Generic Name Dose Route Start Last Admin Trade Name Freq PRN Reason Stop Dose Admin Acetaminophen 650 mg 07/15/19 20:42 Tylenol - PO Q6H PRN PAIN LEVEL 1-5 Albumin Human 12.5 gm 07/17/19 06:00 Albumin Human 25% IVPB 07/17/19 07:31 Q30M ALEXY Aspirin 81 mg 07/16/19 10:00 07/16/19 11:45 Asa - PO 81 mg DAILY ALEXY Administration Atorvastatin Calcium 80 mg 07/15/19 22:00 07/16/19 21:19 Lipitor - PO 80 mg HS ALEXY Administration Clopidogrel Bisulfate 75 mg 07/16/19 10:00 07/16/19 11:45 Plavix - PO 75 mg DAILY ALE[facility] Administration Dextrose 25 gm 07/16/19 11:30 07/17/19 02:57 D50w (Vial) - IVPUSH 25 gm Q4H PRN Administration HYPOGLYCEMIA Epoetin Cornell 10,000 unit 07/17/19 06:00 Procrit - IVPUSH 07/17/19 06:01 ONCE ONE Ferrous Sulfate 325 mg 07/16/19 10:00 07/16/19 11:46 Feosol - PO 325 mg DAILY [facility] Administration Hydrocortisone 1 applic 07/16/19 12:44 Hytone 0.5% Cream - TP DAILY PRN FOR ITCHING Sodium Chloride 250 mls @ 3,000 mls/hr 07/16/19 15:36 Normal Saline - IV 07/17/19 15:36 PRN PRN Hypotension during Dialysis Pantoprazole Sodium 40 mg 07/16/19 10:00 07/16/19 11:47 Protonix - PO 40 mg DAILY [facility] Administration Tamsulosin HCl 0.4 mg 07/16/19 08:30 07/16/19 08:37 Flomax - PO 0.4 mg DAILY@0830 [facility] Administration Problem List - Problems (1) Elevated LFTs Assessment/Plan: >Abdominal US reviewed and noted with dilated CBD Code(s): R94.5 - ABNORMAL RESULTS OF LIVER FUNCTION STUDIES (2) Common bile duct (CBD) stricture Assessment/Plan: r/o clogged biliary stent R> consult Dr Santana for cholangiogram Ca19-9, CEA ordered, pending result Code(s): K83.1 - OBSTRUCTION OF BILE DUCT
[2019-07-17] MEDS: TAMSULOSIN HCL 0.4 MG CAP PO SCH (08:45)
[2019-07-17] MEDS: FERROUS SO4 325 MG TABLET (FP) PO SCH (10:17)
[2019-07-17] MEDS: ASPIRIN 81 MG CHEWABLE TABLETS PO SCH (10:17)
[2019-07-17] MEDS: CLOPIDOGREL BISULFATE 75 MG TABLET (FP) PO SCH (10:17)
[2019-07-17] MEDS: PANTOPRAZOLE 40 MG TABLET PO SCH (10:17)
--- NOTE | 2019-07-17 12:04 | PN ---
Progress Note, Physician Chief Complaint: ESRD on HD Elevated LFTs History of Present Illness: Previous notes and events reviewed awake and alert NAD examined while in HD denies chest pain or SOB LFTs dhowing downtrend - Current Medication List Current Medications: Active Medications Acetaminophen (Tylenol -) 650 mg PO Q6H PRN PRN Reason: PAIN LEVEL 1-5 Albumin Human (Albumin Human 25%) 12.5 gm IVPB Q30M [facility] Stop: 07/17/19 07:31 Aspirin (Asa -) 81 mg PO DAILY [facility] Last Admin: 07/17/19 10:17 Dose: 81 mg Atorvastatin Calcium (Lipitor -) 80 mg PO HS [facility] Last Admin: 07/16/19 21:19 Dose: 80 mg Clopidogrel Bisulfate (Plavix -) 75 mg PO DAILY [facility] Last Admin: 07/17/19 10:17 Dose: 75 mg Dextrose (D50w (Vial) -) 25 gm IVPUSH Q4H PRN PRN Reason: HYPOGLYCEMIA Last Admin: 07/17/19 02:57 Dose: 25 gm Epoetin [place] (Procrit -) 10,000 unit IVPUSH ONCE ONE Stop: 07/17/19 06:01 Ferrous Sulfate (Feosol -) 325 mg PO DAILY [facility] Last Admin: 07/17/19 10:17 Dose: 325 mg Hydrocortisone (Hytone 0.5% Cream -) 1 applic TP DAILY PRN PRN Reason: FOR ITCHING Sodium Chloride (Normal Saline -) 250 mls @ 3,000 mls/hr IV PRN PRN PRN Reason: Hypotension during Dialysis Stop: 07/17/19 15:36 Pantoprazole Sodium (Protonix -) 40 mg PO DAILY [facility] Last Admin: 07/17/19 10:17 Dose: 40 mg Tamsulosin HCl (Flomax -) 0.4 mg PO DAILY@0830 [facility] Last Admin: 07/17/19 08:45 Dose: 0.4 mg - Objective Vital Signs: Vital Signs Temperature 98.2 F 07/17/19 11:10 Pulse Rate 96 H 07/17/19 11:55 Respiratory Rate 18 07/17/19 11:55 Blood Pressure 98/57 L 07/17/19 11:55 O2 Sat by Pulse Oximetry (%) 97 07/16/19 21:00 Constitutional: Yes: No Distress, Calm, Other (jaundice) Eyes: Yes: Conjunctiva Clear HENT: Yes: Atraumatic Cardiovascular: Yes: Regular Rate and Rhythm Respiratory: Yes: Regular, CTA Bilaterally Gastrointestinal: Yes: Normal Bowel Sounds, Soft, Other (RUQ biliary stent/tube) Musculoskeletal: Yes: Muscle Weakness Extremities: Yes: WNL Edema: No Integumentary: Yes: Jaundice Neurological: Yes: Alert, Oriented Psychiatric: Yes: Alert, Oriented Labs: CBC, BMP 07/16/19 12:05 07/16/19 12:05 INR, PTT INR 1.48 (0.83-1.09) H 07/14/19 22:00 Problem List - Problems (1) Anemia Assessment/Plan: -Hg 9.2 -monitor Hg daily -transfuse for Hg <7.0 to avoid fluid overload -iron profile ordered -Ferrous Sulfate daily -Epogen x 1 dose in HD Code(s): D64.9 - ANEMIA, UNSPECIFIED (2) BPH (benign prostatic hyperplasia) Assessment/Plan: -Tamsulosin Code(s): N40.0 - BENIGN PROSTATIC HYPERPLASIA WITHOUT LOWER URINRY TRACT SYMP (3) CAD (coronary artery disease) Assessment/Plan: -Aspirin, Atorvastatin, Plavix Code(s): I25.10 - ATHSCL HEART DISEASE OF [place] CORONARY ARTERY W/O ANG PCTRS (4) Common bile duct (CBD) stricture Assessment/Plan: -GI on board -monitor LFTs for downtrend -IR consult for possible cholangiogram -Abdominal US shows s/p biliary stent with prominent CBD, mild hepatomegaly with diffuse fatty infiltration of liver -CEA, Ca 19-9 Code(s): K83.1 - OBSTRUCTION OF BILE DUCT (5) Diabetes Assessment/Plan: -BGM ACHS -has been running hypoglycemic -HgA1c -Endocrinology consult -Dextrose IVP q4h PRN for BS <65mg/dL Code(s): E11.9 - TYPE 2 DIABETES MELLITUS WITHOUT COMPLICATIONS (6) ESRD (end stage renal disease) on dialysis Assessment/Plan: -Renal on board -continue HD on scheduled days -BUN/Cr 51.3/7.0 -monitor renal function daily Code(s): N18.6 - END STAGE RENAL DISEASE; Z99.2 - DEPENDENCE ON RENAL DIALYSIS (7) Elevated LFTs Assessment/Plan: -AST 210, ALT 120, Alk Phos 692 -GI on board -IR consult for possible cholangiogram -Abdominal US shows s/p biliary stent with prominent CBD, mild hepatomegaly with diffuse fatty infiltration of liver Code(s): R94.5 - ABNORMAL RESULTS OF LIVER FUNCTION STUDIES (8) Elevated troponin Assessment/Plan: -Cardiology consult Code(s): R79.89 - OTHER SPECIFIED ABNORMAL FINDINGS OF BLOOD CHEMISTRY (9) GERD (gastroesophageal reflux disease) Assessment/Plan: -Pantoprazole Code(s): K21.9 - GASTRO-ESOPHAGEAL REFLUX DISEASE WITHOUT ESOPHAGITIS (10) HLD (hyperlipidemia) Assessment/Plan: -Atorvastatin Code(s): E78.5 - HYPERLIPIDEMIA, UNSPECIFIED (11) Hypotension Assessment/Plan: -[place] -Cardiology consult -monitor BP Code(s): I95.9 - HYPOTENSION, UNSPECIFIED Assessment/Plan see problem list dvt ppx
[2019-07-17 12:19] LABS: HEMATOCRIT 28.3 % (35.4-49); HEMOGLOBIN 9.2 GM/dL (11.7-16.9); MCH 28.7 pg (25.7-33.7); MCHC 32.4 g/dl (32.0-35.9); MEAN CELL VOLUME 88.4 fl (80-96); MEAN PLT VOLUME 8.8 fl (7.5-11.1); PLATELET COUNT 182 K/MM3 (134-434); RDW 19.6 % (11.9-15.9); WHITE BLOOD COUNT 11.5 K/mm3 (4.0-10.0)
[2019-07-17] MEDS ORDERED: EPOETIN ALFA 10,000 UNIT/1 ML VIAL IVPUSH ONE (12:30)
[2019-07-17] MEDS: ALBUMIN HUMAN 25% 12.5 GM/50 ML VIAL IVPB SCH ×3 (13:00→14:21)
[2019-07-17 13:26] LABS: ALBUMIN 1.7 g/dl (3.4-5.0); BILIRUBIN,TOTAL 8.1 mg/dL (0.2-1); BLOOD UREA NITROGEN 51.3 mg/dL (7-18); PHOSPHOROUS 7.1 mg/dL (2.5-4.9); POTASSIUM 3.5 mmol/L (3.5-5.1); TOT PROT 5.1 g/dl (6.4-8.2)
[2019-07-17 13:34] LABS: CALCIUM 6.9 mg/dL (8.5-10.1)
[2019-07-17] MEDS: MIDODRINE HCL 5 MG TABLET PO SCH ×2 (14:16→18:08)
--- NOTE | 2019-07-17 14:20 | PN ---
Progress Note, Physician History of Present Illness: PULMONARY ALERT,COMFORTABLE ON HD,-C/O SOB - Current Medication List Current Medications: Active Medications Acetaminophen (Tylenol -) 650 mg PO Q6H PRN PRN Reason: PAIN LEVEL 1-5 Aspirin (Asa -) 81 mg PO DAILY [facility] Last Admin: 07/17/19 10:17 Dose: 81 mg Atorvastatin Calcium (Lipitor -) 80 mg PO HS [facility] Last Admin: 07/16/19 21:19 Dose: 80 mg Clopidogrel Bisulfate (Plavix -) 75 mg PO DAILY [facility] Last Admin: 07/17/19 10:17 Dose: 75 mg Dextrose (D50w (Vial) -) 25 gm IVPUSH Q4H PRN PRN Reason: HYPOGLYCEMIA Last Admin: 07/17/19 02:57 Dose: 25 gm Ferrous Sulfate (Feosol -) 325 mg PO DAILY [facility] Last Admin: 07/17/19 10:17 Dose: 325 mg Hydrocortisone (Hytone 0.5% Cream -) 1 applic TP DAILY PRN PRN Reason: FOR ITCHING Sodium Chloride (Normal Saline -) 250 mls @ 3,000 mls/hr IV PRN PRN PRN Reason: Hypotension during Dialysis Stop: 07/17/19 15:36 Midodrine (Proamatine -) 5 mg PO TID[facility] Pantoprazole Sodium (Protonix -) 40 mg PO DAILY [facility] Last Admin: 07/17/19 10:17 Dose: 40 mg Tamsulosin HCl (Flomax -) 0.4 mg PO DAILY@0830 [facility] Last Admin: 07/17/19 08:45 Dose: 0.4 mg - Objective Vital Signs: Vital Signs Temperature 98.2 F 07/17/19 11:10 Pulse Rate 101 H 07/17/19 13:45 Respiratory Rate 18 07/17/19 13:45 Blood Pressure 92/31 L 07/17/19 13:45 O2 Sat by Pulse Oximetry (%) 97 07/17/19 09:00 Constitutional: Yes: Well Nourished, Calm Eyes: Yes: WNL HENT: Yes: WNL Neck: Yes: WNL Cardiovascular: Yes: Regular Rate and Rhythm, S1, S2 Respiratory: Yes: Diminished Gastrointestinal: Yes: Normal Bowel Sounds, Soft Extremities: Yes: WNL Edema: No Labs: CBC, BMP 07/17/19 11:15 07/17/19 13:00 INR, PTT INR 1.48 (0.83-1.09) H 07/14/19 22:00 Problem List - Problems (1) Anemia Code(s): D64.9 - ANEMIA, UNSPECIFIED (2) CAD (coronary artery disease) Code(s): I25.10 - ATHSCL HEART DISEASE OF [place] CORONARY ARTERY W/O ANG PCTRS (3) ESRD (end stage renal disease) on dialysis Code(s): N18.6 - END STAGE RENAL DISEASE; Z99.2 - DEPENDENCE ON RENAL DIALYSIS (4) Elevated LFTs Code(s): R94.5 - ABNORMAL RESULTS OF LIVER FUNCTION STUDIES (5) Elevated lactic acid level Code(s): R79.89 - OTHER SPECIFIED ABNORMAL FINDINGS OF BLOOD CHEMISTRY (6) Rash and nonspecific skin eruption Code(s): R21 - RASH AND OTHER NONSPECIFIC SKIN ERUPTION Assessment/Plan Assessment/Plan Elevated LFTs improving ESRD on HD Drug Rash Atelectasis Lactic Acidosis DM CAD +Troponins likely Demand Ischemia GERD BPH - monitor lytes - trend LFTs - GI work up in progress - HD per renal - DVT prophylaxis DR LORA
--- NOTE | 2019-07-17 15:15 | PN ---
Progress Note (short form) - Note Progress Note: Renal follow up for ESRD on HD Seen and examined at the bedside awake and alert no acute complaints tolerated dialysis this am with 1L UF Vital Signs Temperature 98.2 F 07/17/19 11:10 Pulse Rate 107 H 07/17/19 14:35 Respiratory Rate 18 07/17/19 14:35 Blood Pressure 96/49 L 07/17/19 14:35 O2 Sat by Pulse Oximetry (%) 97 07/17/19 09:00 Intake & Output 07/14/19 07/15/19 07/16/19 07/17/19 23:59 23:59 23:59 23:59 Intake Total 600 680 Output Total 500 225 Balance 100 -225 680 Weight 74.843 kg 74.797 kg 76.022 kg 76.022 kg NAD RRR CTA, no rales or wheeze soft NT/ND rash improving right IJ tunneled HD catheter right sided abdominal drain no LE edema, clubbing or cyanosis CBC, BMP 07/17/19 11:15 07/17/19 13:00 Current Medications Acetaminophen (Tylenol -) 650 mg PO Q6H PRN PRN Reason: PAIN LEVEL 1-5 Aspirin (Asa -) 81 mg PO DAILY [facility] Last Admin: 07/17/19 10:17 Dose: 81 mg Atorvastatin Calcium (Lipitor -) 80 mg PO HS [facility] Last Admin: 07/16/19 21:19 Dose: 80 mg Clopidogrel Bisulfate (Plavix -) 75 mg PO DAILY [facility] Last Admin: 07/17/19 10:17 Dose: 75 mg Dextrose (D50w (Vial) -) 25 gm IVPUSH Q4H PRN PRN Reason: HYPOGLYCEMIA Last Admin: 07/17/19 02:57 Dose: 25 gm Ferrous Sulfate (Feosol -) 325 mg PO DAILY [facility] Last Admin: 07/17/19 10:17 Dose: 325 mg Hydrocortisone (Hytone 0.5% Cream -) 1 applic TP DAILY PRN PRN Reason: FOR ITCHING Sodium Chloride (Normal Saline -) 250 mls @ 3,000 mls/hr IV PRN PRN PRN Reason: Hypotension during Dialysis Stop: 07/17/19 15:36 Midodrine (Proamatine -) 5 mg PO TID-[facility] Pantoprazole Sodium (Protonix -) 40 mg PO DAILY [facility] Last Admin: 07/17/19 10:17 Dose: 40 mg Tamsulosin HCl (Flomax -) 0.4 mg PO DAILY@0830 [facility] Last Admin: 07/17/19 08:45 Dose: 0.4 mg 88 year old gentleman with history of CKD with ERNIE now on dialysis (6 weeks), biliary obstruction with indwelling biliary drain, pancreatitis, anemia, CAD, BPH, GERD who who presented from [place] with diffuse erythematous rash after being on antibiotics for suspected PNA. 1. ESRD on HD/ERNIE on CKD on dialysis 2. Erythemaous rash on skin, possible drug rash 3. Suspected PNA 4. Anemia 5. DM type 2 tolerated dialysis with 1L UF this am start midodrine 5mg TID for BP support HAMLET with dialysis for anemia management Continue oral DM medications GI follow up for IR study to ensure biliary drain is functional Thank you Brandon Perez DO
[2019-07-17 16:43] LABS: TOTAL IRON BINDING CAPACITY 161 ug/dL (250-450)
[2019-07-17 16:44] LABS: IRON SERUM 31 ug/dL (50-175)
--- NOTE | 2019-07-17 17:56 | PN ---
Progress Note (short form) - Note Progress Note: ID CONSULT DICTATED LEUKOCYTOSIS DRUG RASH OBSTRUCTIVE JAUNDICE LACTIC ACIDODSIS AWAIT C/S OBSERVE OFF ANTIBIOTICS
[2019-07-17] MEDS: SEVELAMER CARBONATE 800 MG TAB (FP) PO SCH (18:08)
--- NOTE | 2019-07-17 20:35 | CONS ---
DATE OF CONSULTATION: DATE OF DICTATION: 07/17/2019 INFECTIOUS DISEASE CONSULTATION HISTORY OF PRESENT ILLNESS: The patient is an 88-year-old male who is evaluated for leukocytosis. History was obtained primarily from the chart. He is a retirement resident. He was recently hospitalized where he was found to have obstructive jaundice presumably secondary to pancreatic malignancy. A percutaneous cholecystotomy tube was inserted. He is residing in a nursing facility. He was recently started on antibiotics for left lower lobe pneumonia. Patient had developed a rash. He is now admitted for further evaluation. He presented to the emergency room for evaluation of the rash. He course has been complicated by elevated white blood cell count and elevated troponins. Patient has a history of recent onset of end-stage renal disease on hemodialysis. He is awake and alert. He offers no focal complaint. He denies any abdominal pain. No complaints of nausea or vomiting. Denies any fever or chills. No urinary tract complaints. He is making small amounts of urine. PAST MEDICAL HISTORY: Positive for diabetes mellitus, chronic kidney disease, pancreatitis, coronary artery disease, BPH, gastroesophageal reflux, history of recently diagnosed biliary tract obstruction status post percutaneous cholecystostomy. History of recent onset end-stage renal disease on hemodialysis. ALLERGIES: PENICILLIN (rash). MEDICATION: 1. Aspirin. 2. Lipitor. 3. Plavix. 4. Feosol. 5. Lasix. 6. Glucotrol. 7. Lopressor. 8. Januvia. 9. Flomax. 10. Prednisone. SOCIAL HISTORY: Presently living in a shelter facility. Nonsmoker, nondrinker. SYSTEMS REVIEW: Neurologic: No loss of consciousness, seizure activity, focal weakness. Cardiac: Negative for chest pain or palpitations. Respiratory: Negative for cough or sputum production. Gastrointestinal: As per HPI. Genitourinary: As per HPI. LABORATORY DATA: White count 11.5, hemoglobin 28.3, platelets 182, INR 1.48, BUN 51, creatinine 7.0, lactic acid on admission 2.6 presently 1.2, total bilirubin 8.1, alkaline phosphatase 691, AST 210. Blood cultures preliminarily negative. PHYSICAL EXAMINATION: General: On exam, he is awake, he is chronically ill appearing. He is deeply jaundiced. Vital signs: Temperature 98.1, blood pressure 96/49, pulse 107 regular, respirations 18 per minute. HEENT: Sclerae anicteric. Cardiovascular: Heart sounds S1, S2. Lungs: Grossly clear. Abdomen: Soft, no tenderness elicited. No mass, rebound, or rigidity. Cholecystotomy tube present right upper quadrant. Extremities: Positive for edema. IMPRESSION: 1. Leukocytosis, possibly secondary to recent steroid use. 2. Obstructive jaundice status post cholecystostomy tube. 3. Drug rash. 4. Lactic acidosis. 5. End-stage renal disease on hemodialysis. Await culture results. At the present time would observe off antibiotic therapy. Continue prednisone and Benadryl as needed for rash. Will follow. Thank you for the kind referral. TAWANA WILHELM M.D. LEAH/[id number]
[2019-07-17] MEDS: ATORVASTATIN CA 80 MG TABLET (FP) PO SCH (22:50)
--- NOTE | 2019-07-18 01:52 | CONSULT ---
Consult Consult Specialty:: Endocrine Referred by:: Vincent NARANJO Reason for Consultation:: Hypoglycemia - History of Present Illness Chief Complaint: feeling weak History of Present Illness: 88 y/o male with past medical history of DMT2,pancreatitis, CKD on HD, Anemia, CAD, BPH, GERD. admitted from snf with rash,lung infiltrate and elevated LFTs on admission. he is sp biliary tube to RUQ draining dark bilious fluid. he had been on oral agents and insulin previously since appetite has been poor and not taking po he has had several episodes of hypoglycemia. - Past Medical History Cardio/Vascular: Yes: CAD, Hyperlipdemia Gastrointestinal: Yes: GERD Renal/: Yes: Renal Inusuff, BPH, Hemodialysis Endocrine: Yes: Diabetes Mellitus, Other (pancreatitis) - Past Surgical History Past Surgical History: Yes: AV Fistula/Graft - Alcohol/Substance Use Hx Alcohol Use: No History of Substance Use: reports: None - Smoking History Smoking history: Never smoked - Social History ADL: Support Services History of Recent Travel: No Home Medications - Allergies Allergies/Adverse Reactions: Allergies Allergy/AdvReac Type Severity Reaction Status Date / Time Penicillins Allergy Verified 07/14/19 20:20 - Home Medications Home Medications: Ambulatory Orders Aspirin 81 mg PO DAILY 07/14/19 Atorvastatin Ca [Lipitor] 80 mg PO HS 07/14/19 Cholecalciferol (Vitamin D3) [Vitamin D3] 50,000 unit PO WEEKLY 07/14/19 Clopidogrel Bisulfate [Plavix] 75 mg PO DAILY 07/14/19 Ferrous Sulfate [Feosol] 325 mg PO DAILY 07/14/19 Furosemide [Lasix] 40 mg PO DAILY 07/14/19 Glipizide [Glucotrol Xl] 5 mg PO DAILY 07/14/19 Hydrocortisone 1% Cream [Hytone 1% Cream -] 1 applic TP QID 07/14/19 Insulin Glargine,Hum.rec.anlog [Lantus (nf)] 0 units SQ HS 07/14/19 Insulin Lispro [Humalog] 100 unit SQ TID 07/14/19 Metoprolol Tartrate [Lopressor -] 25 mg PO DAILY 07/14/19 Multivitamins [Tab-A-Vit -] 1 tab PO DAILY 07/14/19 Pantoprazole Sodium 40 mg PO DAILY 07/14/19 Sitagliptin Phosphate [Januvia] 25 mg PO DAILY 07/14/19 Tamsulosin HCl [Flomax] 0.4 mg PO DAILY 07/14/19 predniSONE [Deltasone -] 40 mg PO DAILY 07/14/19 Review of Systems - Review of Systems Constitutional: reports: Lethargy, Unintentional Wgt. Loss Eyes: reports: Blurred Vision HENT: reports: No Symptoms Neck: reports: No Symptoms Cardiovascular: reports: Shortness of Breath Respiratory: reports: Exercise Intolerance, SOB Gastrointestinal: reports: Indigestion, Nausea Genitourinary: reports: No Symptoms Neurological: reports: Numbness Endocrine: reports: Unexplained Weight Loss Physical Exam Vital Signs: Vital Signs Temperature 98.1 F 07/17/19 18:00 Pulse Rate 97 H 07/17/19 18:00 Respiratory Rate 18 07/17/19 18:00 Blood Pressure 102/54 L 07/17/19 18:00 O2 Sat by Pulse Oximetry (%) 97 07/17/19 09:00 Constitutional: Yes: Calm Eyes: Yes: EOM Intact HENT: Yes: Normocephalic Neck: Yes: Trachea Midline Cardiovascular: Yes: Regular Rate and Rhythm Respiratory: Yes: Diminished, Tachypnea Gastrointestinal: Yes: Normal Bowel Sounds ...Rectal Exam: Yes: Deferred Musculoskeletal: Yes: Muscle Weakness Extremities: Yes: WNL Edema: LLE: Trace, RLE: Trace Neurological: Yes: Alert, Oriented Labs: CBC, BMP 07/17/19 11:15 07/17/19 13:00 Problem List - Problems (1) Hypoglycemia associated with type 2 diabetes mellitus Problems reviewed: Yes Code(s): E11.649 - TYPE 2 DIABETES MELLITUS WITH HYPOGLYCEMIA WITHOUT COMA (2) Anemia Code(s): D64.9 - ANEMIA, UNSPECIFIED (3) BPH (benign prostatic hyperplasia) Code(s): N40.0 - BENIGN PROSTATIC HYPERPLASIA WITHOUT LOWER URINRY TRACT SYMP (4) CAD (coronary artery disease) Code(s): I25.10 - ATHSCL HEART DISEASE OF [place] CORONARY ARTERY W/O ANG PCTRS (5) Common bile duct (CBD) stricture Code(s): K83.1 - OBSTRUCTION OF BILE DUCT (6) Diabetes Code(s): E11.9 - TYPE 2 DIABETES MELLITUS WITHOUT COMPLICATIONS (7) ESRD (end stage renal disease) on dialysis Code(s): N18.6 - END STAGE RENAL DISEASE; Z99.2 - DEPENDENCE ON RENAL DIALYSIS (8) Elevated LFTs Code(s): R94.5 - ABNORMAL RESULTS OF LIVER FUNCTION STUDIES (9) Elevated lactic acid level Code(s): R79.89 - OTHER SPECIFIED ABNORMAL FINDINGS OF BLOOD CHEMISTRY Assessment/Plan Current Active Problems Anemia (Acute) BPH (benign prostatic hyperplasia) (Acute) CAD (coronary artery disease) (Acute) Common bile duct (CBD) stricture (Acute) Diabetes (Acute) ESRD (end stage renal disease) on dialysis (Acute) Elevated LFTs (Acute) Elevated lactic acid level (Acute) Elevated troponin (Acute) GERD (gastroesophageal reflux disease) (Acute) HLD (hyperlipidemia) (Acute) HTN (hypertension) (Acute) Hypotension (Acute) Jaundice, persistent (Acute) Pleural effusion (Acute) Rash and nonspecific skin eruption (Acute) Abnormal Lab Results 07/17/19 07/17/19 07/17/19 11:15 13:00 15:00 WBC 11.5 H RBC 3.20 L Hgb 9.2 L Hct 28.3 L RDW 19.6 H Carbon Dioxide 17 L Anion Gap 17 H BUN 51.3 H Creatinine 7.0 H Random Glucose 71 L Calcium 6.9 L* Phosphorus 7.1 H Iron 31 L TIBC 161 L Unsaturated IBC 130 L Ferritin Total Bilirubin 8.1 H AST 210 H ALT 121 H Alkaline Phosphatase 691 H Total Protein 5.1 L Albumin 1.7 L 07/17/19 15:00 WBC RBC Hgb Hct RDW Carbon Dioxide Anion Gap BUN Creatinine Random Glucose Calcium Phosphorus Iron TIBC Unsaturated IBC Ferritin 3193.3 H Total Bilirubin AST ALT Alkaline Phosphatase Total Protein Albumin Laboratory Results - last 24 hr 07/17/19 07/17/19 07/17/19 02:38 04:58 11:15 WBC 11.5 H RBC 3.20 L Hgb 9.2 L Hct 28.3 L MCV 88.4 MCH 28.7 MCHC 32.4 RDW 19.6 H Plt Count 182 MPV 8.8 Sodium Potassium Chloride Carbon Dioxide Anion Gap BUN Creatinine Est GFR (CKD-EPI)AfAm Est GFR (CKD-EPI)NonAf POC Glucometer 63 108 Random Glucose Calcium Phosphorus Iron TIBC Iron Saturation Unsaturated IBC Ferritin Total Bilirubin AST ALT Alkaline Phosphatase Total Protein Albumin Hep Bs Antigen Hep C Ab Diagnostic 1107/17/19 07/17/19 11:15 13:00 15:00 WBC RBC Hgb Hct MCV MCH MCHC RDW Plt Count MPV Sodium 136 Potassium 3.5 Chloride 101 Carbon Dioxide 17 L Anion Gap 17 H BUN 51.3 H Creatinine 7.0 H Est GFR (CKD-EPI)AfAm 7.32 Est GFR (CKD-EPI)NonAf 6.32 POC Glucometer Random Glucose 71 L Calcium 6.9 L* Phosphorus 7.1 H Iron 31 L TIBC 161 L Iron Saturation 19 Unsaturated IBC 130 L Ferritin Total Bilirubin 8.1 H AST 210 H ALT 121 H Alkaline Phosphatase 691 H Total Protein 5.1 L Albumin 1.7 L Hep Bs Antigen Negative Hep C Ab Diagnostic 0.1 07/17/19 07/17/19 07/17/19 15:00 18:10 22:58 WBC RBC Hgb Hct MCV MCH MCHC RDW Plt Count MPV Sodium Potassium Chloride Carbon Dioxide Anion Gap BUN Creatinine Est GFR (CKD-EPI)AfAm Est GFR (CKD-EPI)NonAf POC Glucometer 110 133 Random Glucose Calcium Phosphorus Iron TIBC Iron Saturation Unsaturated IBC Ferritin 3193.3 H Total Bilirubin AST ALT Alkaline Phosphatase Total Protein Albumin Hep Bs Antigen Hep C Ab Diagnostic plan: as diet advanced continue bgm qid avoid oral diabetic agents novolog scale \titrate to levemir once sugars improve ck hba1c
[2019-07-18 08:07] LABS: CARCINOEMBRYONIC ANTIGEN 11.2 ng/mL (0.0-4.7)
[2019-07-18] MEDS ORDERED: PT OWN MED DRAWER 7, Y5N ONE (09:10)
[2019-07-18] MEDS: TAMSULOSIN HCL 0.4 MG CAP PO SCH (09:14)
[2019-07-18] MEDS: SEVELAMER CARBONATE 800 MG TAB (FP) PO SCH ×3 (09:14→18:19)
[2019-07-18] MEDS: MIDODRINE HCL 5 MG TABLET PO SCH ×3 (09:14→18:19)
[2019-07-18] MEDS: FERROUS SO4 325 MG TABLET (FP) PO SCH (09:14)
[2019-07-18] MEDS: PANTOPRAZOLE 40 MG TABLET PO SCH (09:15)
[2019-07-18] MEDS: CLOPIDOGREL BISULFATE 75 MG TABLET (FP) PO SCH (09:15)
[2019-07-18] MEDS: ASPIRIN 81 MG CHEWABLE TABLETS PO SCH (09:15)
[2019-07-18 09:50] LABS: HEMATOCRIT 28.4 % (35.4-49); HEMOGLOBIN 9.6 GM/dL (11.7-16.9); MCHC 33.9 g/dl (32.0-35.9); MEAN CELL VOLUME 85.7 fl (80-96); MEAN PLT VOLUME 8.4 fl (7.5-11.1); PLATELET COUNT 147 K/MM3 (134-434); RBC 3.31 M/mm3 (4.00-5.60); RDW 19.1 % (11.9-15.9); WHITE BLOOD COUNT 9.6 K/mm3 (4.0-10.0)
[2019-07-18 10:27] LABS: ALBUMIN 1.7 g/dl (3.4-5.0); BILIRUBIN,TOTAL 7.9 mg/dL (0.2-1); BLOOD UREA NITROGEN 26.3 mg/dL (7-18); CALCIUM 7.6 mg/dL (8.5-10.1); CREATININE 4.2 mg/dL (0.55-1.3); TOT PROT 5.1 g/dl (6.4-8.2)
[2019-07-18] MEDS ORDERED: POTASSIUM CHLORIDE ORAL LIQUID 20 MEQ/15 ML PO ONE (11:49)
--- NOTE | 2019-07-18 11:59 | PN ---
Progress Note, Physician Chief Complaint: ESRD on HD Elevated LFTs History of Present Illness: Previous notes and events reviewed awake and alert NAD LFTs trending down Cholagiogram with IR yesterday elevated CEA and Ca 19-9 - Current Medication List Current Medications: Active Medications Acetaminophen (Tylenol -) 650 mg PO Q6H PRN PRN Reason: PAIN LEVEL 1-5 Aspirin (Asa -) 81 mg PO DAILY [facility] Last Admin: 07/18/19 09:15 Dose: 81 mg Atorvastatin Calcium (Lipitor -) 80 mg PO HS [facility] Last Admin: 07/17/19 22:50 Dose: 80 mg Clopidogrel Bisulfate (Plavix -) 75 mg PO DAILY [facility] Last Admin: 07/18/19 09:15 Dose: 75 mg Dextrose (D50w (Vial) -) 25 gm IVPUSH Q4H PRN PRN Reason: HYPOGLYCEMIA Last Admin: 07/17/19 02:57 Dose: 25 gm Ferrous Sulfate (Feosol -) 325 mg PO DAILY [facility] Last Admin: 07/18/19 09:14 Dose: 325 mg Hydrocortisone (Hytone 0.5% Cream -) 1 applic TP DAILY PRN PRN Reason: FOR ITCHING Midodrine (Proamatine -) 5 mg PO TID-MID [facility] Last Admin: 07/18/19 09:14 Dose: 5 mg Pantoprazole Sodium (Protonix -) 40 mg PO DAILY [facility] Last Admin: 07/18/19 09:15 Dose: 40 mg Sevelamer Carbonate (Renvela -) 800 mg PO TIDCM [facility] Last Admin: 07/18/19 09:14 Dose: 800 mg Tamsulosin HCl (Flomax -) 0.4 mg PO DAILY@0830 [facility] Last Admin: 07/18/19 09:14 Dose: 0.4 mg - Objective Vital Signs: Vital Signs Temperature 98.5 F 07/18/19 06:00 Pulse Rate 98 H 07/18/19 06:00 Respiratory Rate 18 07/18/19 06:00 Blood Pressure 91/45 L 07/18/19 06:00 O2 Sat by Pulse Oximetry (%) 98 07/17/19 21:00 Constitutional: Yes: No Distress, Calm Eyes: Yes: Conjunctiva Clear HENT: Yes: Atraumatic Cardiovascular: Yes: Regular Rate and Rhythm Respiratory: Yes: Regular, CTA Bilaterally Gastrointestinal: Yes: Normal Bowel Sounds, Soft, Other (RUQ biliary drain) Musculoskeletal: Yes: Muscle Weakness Extremities: Yes: WNL Edema: No Neurological: Yes: Alert, Oriented Psychiatric: Yes: Alert, Oriented Labs: CBC, BMP 07/18/19 08:10 07/18/19 08:10 INR, PTT INR 1.48 (0.83-1.09) H 07/14/19 22:00 Problem List - Problems (1) Anemia Assessment/Plan: -Hg 9.6 -monitor Hg daily -transfuse for Hg <7.0 to avoid fluid overload -iron profile ordered -Ferrous Sulfate daily -Epogen x 1 dose in HD Code(s): D64.9 - ANEMIA, UNSPECIFIED (2) BPH (benign prostatic hyperplasia) Assessment/Plan: -Tamsulosin Code(s): N40.0 - BENIGN PROSTATIC HYPERPLASIA WITHOUT LOWER URINRY TRACT SYMP (3) CAD (coronary artery disease) Assessment/Plan: -Aspirin, Atorvastatin, Plavix Code(s): I25.10 - ATHSCL HEART DISEASE OF [place] CORONARY ARTERY W/O ANG PCTRS (4) Common bile duct (CBD) stricture Assessment/Plan: -GI on board -monitor LFTs for downtrend -s/p cholangiogram with IR yesterday, results pending -Abdominal US shows s/p biliary stent with prominent CBD, mild hepatomegaly with diffuse fatty infiltration of liver -CEA 11.2 -Ca 19-9 135 Code(s): K83.1 - OBSTRUCTION OF BILE DUCT (5) Diabetes Assessment/Plan: -BGM ACHS -has been running hypoglycemic -HgA1c 4.5% -Endocrinology consult -Dextrose IVP q4h PRN for BS <65mg/dL Code(s): E11.9 - TYPE 2 DIABETES MELLITUS WITHOUT COMPLICATIONS (6) ESRD (end stage renal disease) on dialysis Assessment/Plan: -Renal on board -continue HD on scheduled days -BUN/Cr 26.3/4.2 -monitor renal function daily Code(s): N18.6 - END STAGE RENAL DISEASE; Z99.2 - DEPENDENCE ON RENAL DIALYSIS (7) Elevated LFTs Assessment/Plan: -AST 203 ALT 118, Alk Phos 643 -GI on board -s/p cholangiogram with IR yesterday -Abdominal US shows s/p biliary stent with prominent CBD, mild hepatomegaly with diffuse fatty infiltration of liver Code(s): R94.5 - ABNORMAL RESULTS OF LIVER FUNCTION STUDIES (8) Elevated troponin Assessment/Plan: -Cardiology on board Code(s): R79.89 - OTHER SPECIFIED ABNORMAL FINDINGS OF BLOOD CHEMISTRY (9) GERD (gastroesophageal reflux disease) Assessment/Plan: -Pantoprazole Code(s): K21.9 - GASTRO-ESOPHAGEAL REFLUX DISEASE WITHOUT ESOPHAGITIS (10) HLD (hyperlipidemia) Assessment/Plan: -Atorvastatin Code(s): E78.5 - HYPERLIPIDEMIA, UNSPECIFIED (11) Hypotension Assessment/Plan: -[place] -Cardiology consult -monitor BP Code(s): I95.9 - HYPOTENSION, UNSPECIFIED Assessment/Plan see problem list dvt ppx
--- NOTE | 2019-07-18 11:59 | PN ---
Progress Note (short form) - Note Progress Note: PULMONARY Denies shortness of breath or chest pain. No abdominal pain, nausea or vomiting. Vital Signs Period Temp Pulse Resp BP Sys/Dunn Pulse Ox Last 24 Hr 98.1 F-99.5 F 96-107 18-18 90-117/31-55 98 Gen: jaundiced Heart: RRR Lung: decreased breath sounds at the bases Abd: soft, nontender Ext:no edema CBC, BMP 07/18/19 08:10 07/18/19 08:10 Active Medications Acetaminophen (Tylenol -) 650 mg PO Q6H PRN PRN Reason: PAIN LEVEL 1-5 Aspirin (Asa -) 81 mg PO DAILY [facility] Last Admin: 07/18/19 09:15 Dose: 81 mg Atorvastatin Calcium (Lipitor -) 80 mg PO HS [facility] Last Admin: 07/17/19 22:50 Dose: 80 mg Clopidogrel Bisulfate (Plavix -) 75 mg PO DAILY [facility] Last Admin: 07/18/19 09:15 Dose: 75 mg Dextrose (D50w (Vial) -) 25 gm IVPUSH Q4H PRN PRN Reason: HYPOGLYCEMIA Last Admin: 07/17/19 02:57 Dose: 25 gm Ferrous Sulfate (Feosol -) 325 mg PO DAILY [facility] Last Admin: 07/18/19 09:14 Dose: 325 mg Hydrocortisone (Hytone 0.5% Cream -) 1 applic TP DAILY PRN PRN Reason: FOR ITCHING Midodrine (Proamatine -) 5 mg PO TID-MID [facility] Last Admin: 07/18/19 09:14 Dose: 5 mg Pantoprazole Sodium (Protonix -) 40 mg PO DAILY [facility] Last Admin: 07/18/19 09:15 Dose: 40 mg Sevelamer Carbonate (Renvela -) 800 mg PO TIDCM [facility] Last Admin: 07/18/19 09:14 Dose: 800 mg Tamsulosin HCl (Flomax -) 0.4 mg PO DAILY@0830 [facility] Last Admin: 07/18/19 09:14 Dose: 0.4 mg A/P Elevated LFTs/Obstructive Jaundice ESRD on HD Drug Rash Atelectasis Lactic Acidosis DM CAD +Troponins likely [place]and Ischemia GERD BPH - monitor lytes - trend LFTs - f/u cholangiogram - GI work up in progress - HD per renal - DVT prophylaxis
--- NOTE | 2019-07-18 13:41 | PN.GI ---
GI Progress Note Subjective: GI NOte ( covering Dr Oneil) : LFTs are slightly improved since the T tube cholangiogram. Ced tells me that Dr Best plans to unclog the indwelling stent on 07/20. The Ca 19.9 is elevated supporting a cholangiocarcinoma. - Objective Vital Signs: Vital Signs Temperature 98.5 F 07/18/19 06:00 Pulse Rate 98 H 07/18/19 06:00 Respiratory Rate 18 07/18/19 06:00 Blood Pressure 91/45 L 07/18/19 06:00 O2 Sat by Pulse Oximetry (%) 98 07/17/19 21:00 Laboratory Tests 07/14/19 07/16/19 07/17/19 22:00 10:00 11:15 WBC Total Bilirubin 10.4 H 8.2 H D AST 264 H 223 H ALT 161 H 128 H Alkaline Phosphatase 804 H 711 H CA 19-9 Antigen 135 H 07/17/19 07/17/19 07/18/19 11:15 13:00 08:10 WBC 11.5 H 9.6 Total Bilirubin 8.1 H AST 210 H ALT 121 H Alkaline Phosphatase 691 H CA 19-9 Antigen 07/18/19 08:10 WBC Total Bilirubin 7.9 H AST 203 H ALT 118 H Alkaline Phosphatase 643 H CA 19-9 Antigen Constitutional: Calm Eyes: Yes: Sclera Icterus Gastrointestinal Inspection: Yes: Other (RUQ indwelling catheter draining bile) ...Auscultate: Yes: Normoactive Bowel Sounds ...Palpate: Yes: Soft, Other (nontender) Labs: CBC, BMP 07/18/19 08:10 07/18/19 08:10 INR, PTT INR 1.48 (0.83-1.09) H 07/14/19 22:00 Assessment/Plan Assessment: - Proximal CBD obstruction with elevated Ca 19.9 suggests cholangiocarcinoma, 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
--- NOTE | 2019-07-18 16:07 | PN ---
Progress Note (short form) - Note Progress Note: 1. ESRD on HD/ERNIE on CKD on dialysis 2. Erythemaous rash on skin, possible drug rash 3. Suspected PNA 4. Anemia 5. DM type 2 Current Medications Acetaminophen (Tylenol -) 650 mg PO Q6H PRN PRN Reason: PAIN LEVEL 1-5 Aspirin (Asa -) 81 mg PO DAILY [facility] Last Admin: 07/18/19 09:15 Dose: 81 mg Atorvastatin Calcium (Lipitor -) 80 mg PO HS [facility] Last Admin: 07/17/19 22:50 Dose: 80 mg Clopidogrel Bisulfate (Plavix -) 75 mg PO DAILY [facility] Last Admin: 07/18/19 09:15 Dose: 75 mg Dextrose (D50w (Vial) -) 25 gm IVPUSH Q4H PRN PRN Reason: HYPOGLYCEMIA Last Admin: 07/17/19 02:57 Dose: 25 gm Ferrous Sulfate (Feosol -) 325 mg PO DAILY [facility] Last Admin: 07/18/19 09:14 Dose: 325 mg Hydrocortisone (Hytone 0.5% Cream -) 1 applic TP DAILY PRN PRN Reason: FOR ITCHING Midodrine (Proamatine -) 5 mg PO TID-MID [facility] Last Admin: 07/18/19 13:09 Dose: 5 mg Pantoprazole Sodium (Protonix -) 40 mg PO DAILY [facility] Last Admin: 07/18/19 09:15 Dose: 40 mg Sevelamer Carbonate (Renvela -) 800 mg PO TIDCM [facility] Last Admin: 07/18/19 12:51 Dose: 800 mg Tamsulosin HCl (Flomax -) 0.4 mg PO DAILY@0830 [facility] Last Admin: 07/18/19 09:14 Dose: 0.4 mg Last Vital Signs Temp Pulse Resp BP Pulse Ox 97.7 F 80 18 97/44 L 98 07/18/19 15:52 07/18/19 15:52 07/18/19 15:52 07/18/19 15:52 07/17/19 21:00 CBC, BMP 07/18/19 08:10 07/18/19 08:10 IMP- ESRD Plan next HD MWF tolerated dialysis with 1L UF this am start midodrine 5mg TID for BP support HAMLET with dialysis for anemia management Continue oral DM medications GI follow up for IR study to ensure biliary drain is functional Thank you
--- NOTE | 2019-07-18 17:16 | PN ---
Progress Note, Physician History of Present Illness: AWAKE, ALERT IN BED OFFERS NO COMPLAINTS AFEBRILE APPEARS LESS JAUNDICED C/S NO GROWTH - Current Medication List Current Medications: Active Medications Acetaminophen (Tylenol -) 650 mg PO Q6H PRN PRN Reason: PAIN LEVEL 1-5 Aspirin (Asa -) 81 mg PO DAILY [facility] Last Admin: 07/18/19 09:15 Dose: 81 mg Atorvastatin Calcium (Lipitor -) 80 mg PO HS [facility] Last Admin: 07/17/19 22:50 Dose: 80 mg Clopidogrel Bisulfate (Plavix -) 75 mg PO DAILY [facility] Last Admin: 07/18/19 09:15 Dose: 75 mg Dextrose (D50w (Vial) -) 25 gm IVPUSH Q4H PRN PRN Reason: HYPOGLYCEMIA Last Admin: 07/17/19 02:57 Dose: 25 gm Ferrous Sulfate (Feosol -) 325 mg PO DAILY [facility] Last Admin: 07/18/19 09:14 Dose: 325 mg Hydrocortisone (Hytone 0.5% Cream -) 1 applic TP DAILY PRN PRN Reason: FOR ITCHING Midodrine (Proamatine -) 5 mg PO TID-MID [facility] Last Admin: 07/18/19 13:09 Dose: 5 mg Pantoprazole Sodium (Protonix -) 40 mg PO DAILY [facility] Last Admin: 07/18/19 09:15 Dose: 40 mg Sevelamer Carbonate (Renvela -) 800 mg PO TIDCM [facility] Last Admin: 07/18/19 12:51 Dose: 800 mg Tamsulosin HCl (Flomax -) 0.4 mg PO DAILY@0830 [facility] Last Admin: 07/18/19 09:14 Dose: 0.4 mg - Objective Vital Signs: Vital Signs Temperature 97.7 F 07/18/19 15:52 Pulse Rate 80 07/18/19 15:52 Respiratory Rate 18 07/18/19 15:52 Blood Pressure 97/44 L 07/18/19 15:52 O2 Sat by Pulse Oximetry (%) 98 07/18/19 09:00 Constitutional: Yes: No Distress Eyes: Yes: Conjunctiva Clear Cardiovascular: Yes: Regular Rate and Rhythm, S1, S2 Respiratory: Yes: CTA Bilaterally Gastrointestinal: Yes: Normal Bowel Sounds, Soft, Other (BILIARY DRAIN IN PLACE) Edema: Yes Labs: CBC, BMP 07/18/19 08:10 07/18/19 08:10 INR, PTT INR 1.48 (0.83-1.09) H 07/14/19 22:00 Assessment/Plan LEUKOCYTOSIS BILIARY OBSTRUCTION S/P PERCUTANEOUS DRAIN OBSERVE OFF ANTIBIOTICS
[2019-07-18] MEDS: ATORVASTATIN CA 80 MG TABLET (FP) PO SCH (21:10)
--- NOTE | 2019-07-19 01:20 | PN ---
Progress Note, Physician Chief Complaint: no complaint - Current Medication List Current Medications: Active Medications Acetaminophen (Tylenol -) 650 mg PO Q6H PRN PRN Reason: PAIN LEVEL 1-5 Aspirin (Asa -) 81 mg PO DAILY [facility] B[facility]S [facility] Last Admin: 07/18/19 09:15 Dose: 81 mg Atorvastatin Calcium (Lipitor -) 80 mg PO HS [facility] 234 BEDS [facility] Last Admin: 07/18/19 21:10 Dose: 80 mg Clopidogrel Bisulfate (Plavix -) 75 mg PO DAILY [facility] 234 B[facility]S [facility] Last Admin: 07/18/19 09:15 Dose: 75 mg Dextrose (D50w (Vial) -) 25 gm IVPUSH Q4H PRN PRN Reason: HYPOGLYCEMIA Last Admin: 07/17/19 02:57 Dose: 25 gm Ferrous Sulfate (Feosol -) 325 mg PO DAILY [facility] 234 B[facility]S [facility] Last Admin: 07/18/19 09:14 Dose: 325 mg Hydrocortisone (Hytone 0.5% Cream -) 1 applic TP DAILY PRN PRN Reason: FOR ITCHING Midodrine (Proamatine -) 5 mg PO TID-MID [facility] 234 B[facility]S [facility] Last Admin: 07/18/19 18:19 Dose: 5 mg Pantoprazole Sodium (Protonix -) 40 mg PO DAILY [facility] 234 B[facility]S [facility] Last Admin: 07/18/19 09:15 Dose: 40 mg Sevelamer Carbonate (Renvela -) 800 mg PO TIDCM [facility] 234 BEDS [facility] Last Admin: 07/18/19 18:19 Dose: 800 mg Tamsulosin HCl (Flomax -) 0.4 mg PO DAILY@0830 [facility] 234 BEDS [facility] Last Admin: 07/18/19 09:14 Dose: 0.4 mg - Objective Vital Signs: Vital Signs Temperature 99.1 F 07/18/19 21:39 Pulse Rate 99 H 07/18/19 21:39 Respiratory Rate 18 07/18/19 21:39 Blood Pressure 100/50 L 07/18/19 21:39 O2 Sat by Pulse Oximetry (%) 98 07/18/19 21:00 Constitutional: Yes: Calm Eyes: Yes: EOM Intact HENT: Yes: Normocephalic Neck: Yes: Trachea Midline Cardiovascular: Yes: Regular Rate and Rhythm Respiratory: Yes: CTA Bilaterally Gastrointestinal: Yes: Normal Bowel Sounds ...Rectal Exam: Yes: Deferred Extremities: Yes: WNL Edema: Yes Neurological: Yes: Alert, Oriented Labs: CBC, BMP 07/18/19 08:10 07/18/19 08:10 INR, PTT INR 1.48 (0.83-1.09) H 07/14/19 22:00 Problem List - Problems (1) Hypoglycemia associated with type 2 diabetes mellitus Problems reviewed: Yes Code(s): E11.649 - TYPE 2 DIABETES MELLITUS WITH HYPOGLYCEMIA WITHOUT COMA (2) Anemia Problems reviewed: Yes Code(s): D64.9 - ANEMIA, UNSPECIFIED (3) BPH (benign prostatic hyperplasia) Code(s): N40.0 - BENIGN PROSTATIC HYPERPLASIA WITHOUT LOWER URINRY TRACT SYMP (4) CAD (coronary artery disease) Code(s): I25.10 - ATHSCL HEART DISEASE OF [place] CORONARY ARTERY W/O ANG PCTRS (5) Common bile duct (CBD) stricture Code(s): K83.1 - OBSTRUCTION OF BILE DUCT (6) Diabetes Code(s): E11.9 - TYPE 2 DIABETES MELLITUS WITHOUT COMPLICATIONS (7) ESRD (end stage renal disease) on dialysis Code(s): N18.6 - END STAGE RENAL DISEASE; Z99.2 - DEPENDENCE ON RENAL DIALYSIS (8) Elevated LFTs Code(s): R94.5 - ABNORMAL RESULTS OF LIVER FUNCTION STUDIES (9) Elevated lactic acid level Code(s): R79.89 - OTHER SPECIFIED ABNORMAL FINDINGS OF BLOOD CHEMISTRY Assessment/Plan Current Active Problems Anemia (Acute) BPH (benign prostatic hyperplasia) (Acute) CAD (coronary artery disease) (Acute) Common bile duct (CBD) stricture (Acute) Diabetes (Acute) ESRD (end stage renal disease) on dialysis (Acute) Elevated LFTs (Acute) Elevated lactic acid level (Acute) Elevated troponin (Acute) GERD (gastroesophageal reflux disease) (Acute) HLD (hyperlipidemia) (Acute) HTN (hypertension) (Acute) Hypoglycemia associated with type 2 diabetes mellitus (Acute) Hypotension (Acute) Jaundice, persistent (Acute) Pleural effusion (Acute) Rash and nonspecific skin eruption (Acute) Abnormal Lab Results 07/17/19 07/18/19 07/18/19 11:15 08:10 08:10 RBC 3.31 L Hgb 9.6 L Hct 28.4 L RDW 19.1 H Potassium 3.0 L BUN 26.3 H Creatinine 4.2 H Random Glucose 65 L Calcium 7.6 L Total Bilirubin 7.9 H AST 203 H ALT 118 H Alkaline Phosphatase 643 H Total Protein 5.1 L Albumin 1.7 L Carcinoembryonic Ag 11.2 H CA 19-9 Antigen 135 H Laboratory Results - last 24 hr 07/17/19 07/18/19 07/18/19 11:15 07:46 08:10 WBC 9.6 RBC 3.31 L Hgb 9.6 L Hct 28.4 L MCV 85.7 MCH 29.0 MCHC 33.9 RDW 19.1 H Plt Count 147 MPV 8.4 Sodium Potassium Chloride Carbon Dioxide Anion Gap BUN Creatinine Est GFR (CKD-EPI)AfAm Est GFR (CKD-EPI)NonAf POC Glucometer 83 Random Glucose Hemoglobin A1c % Calcium Total Bilirubin AST ALT Alkaline Phosphatase Total Protein Albumin Carcinoembryonic Ag 11.2 H CA 19-9 Antigen 135 H 07/18/19 07/18/19 07/18/19 08:10 08:10 12:07 WBC RBC Hgb Hct MCV MCH MCHC RDW Plt Count MPV Sodium 139 Potassium 3.0 L Chloride 100 Carbon Dioxide 28 Anion Gap 11 BUN 26.3 H Creatinine 4.2 H Est GFR (CKD-EPI)AfAm 13.58 Est GFR (CKD-EPI)NonAf 11.72 POC Glucometer 127 Random Glucose 65 L Hemoglobin A1c % 4.5 Calcium 7.6 L Total Bilirubin 7.9 H AST 203 H ALT 118 H Alkaline Phosphatase 643 H Total Protein 5.1 L Albumin 1.7 L Carcinoembryonic Ag CA 19-9 Antigen 07/18/19 07/18/19 16:54 21:41 WBC RBC Hgb Hct MCV MCH MCHC RDW Plt Count MPV Sodium Potassium Chloride Carbon Dioxide Anion Gap BUN Creatinine Est GFR (CKD-EPI)AfAm Est GFR (CKD-EPI)NonAf POC Glucometer 171 163 Random Glucose Hemoglobin A1c % Calcium Total Bilirubin AST ALT Alkaline Phosphatase Total Protein Albumin Carcinoembryonic Ag CA 19-9 Antigen plan: off insulin and oral diabetic meds maintaining glycemic controll avoid oral diabetic meds if necessary use levemir low dose
[2019-07-19] MEDS: FERROUS SO4 325 MG TABLET (FP) PO SCH (10:26)
[2019-07-19] MEDS: PANTOPRAZOLE 40 MG TABLET PO SCH (10:26)
[2019-07-19] MEDS: MIDODRINE HCL 5 MG TABLET PO SCH ×3 (10:26→17:44)
[2019-07-19] MEDS: SEVELAMER CARBONATE 800 MG TAB (FP) PO SCH ×3 (10:27→17:44)
[2019-07-19] MEDS: TAMSULOSIN HCL 0.4 MG CAP PO SCH (10:27)
[2019-07-19] MEDS: ASPIRIN 81 MG CHEWABLE TABLETS PO SCH (10:27)
[2019-07-19 10:39] LABS: HEMATOCRIT 28.7 % (35.4-49); HEMOGLOBIN 9.4 GM/dL (11.7-16.9); MCH 28.6 pg (25.7-33.7); MCHC 32.8 g/dl (32.0-35.9); MEAN CELL VOLUME 87.4 fl (80-96); MEAN PLT VOLUME 8.5 fl (7.5-11.1); PLATELET COUNT 128 K/MM3 (134-434); RBC 3.29 M/mm3 (4.00-5.60); RDW 18.5 % (11.9-15.9); WHITE BLOOD COUNT 11.9 K/mm3 (4.0-10.0)
--- NOTE | 2019-07-19 10:39 | PN.GI ---
GI Progress Note Subjective: GI NOte ( covering Dr Oneil): Called to evaluate the patient for bleeding and oozing from the t tube site. Ced denies any abdominal pain, chills or dizzyness. Ced tells me that he is on Plavix for a coronary stent that was placed 2 years ago. Given his hematobilia and need for further manipulation/ dilation I have told him that I need to stop it. I will not stop his aspirin - Objective Vital Signs: Vital Signs Temperature 98.9 F 07/19/19 06:00 Pulse Rate 95 H 07/19/19 06:00 Respiratory Rate 18 07/19/19 06:00 Blood Pressure 108/51 L 07/19/19 06:00 O2 Sat by Pulse Oximetry (%) 98 07/18/19 21:00 Laboratory Tests 07/17/19 07/17/19 07/18/19 11:15 11:15 08:10 WBC 11.5 H 9.6 Total Bilirubin AST ALT Alkaline Phosphatase CA 19-9 Antigen 135 H 07/19/19 09:48 WBC Total Bilirubin Pending AST Pending ALT Pending Alkaline Phosphatase Pending CA 19-9 Antigen Constitutional: Calm Eyes: Yes: Sclera Icterus Gastrointestinal Inspection: Yes: Other (bleeding and leaking from the T tube site has resolved with compression. New compression dressing applied.) ...Auscultate: Yes: Normoactive Bowel Sounds ...Palpate: Yes: Soft, Other (nontender) Labs: INR, PTT INR 1.48 (0.83-1.09) H 07/14/19 22:00 Assessment/Plan Assessment: - Proximal CBD obstruction with elevated Ca 19.9 suggests cholangiocarcinoma, likely one of the [place] types - The hematobilia clots may be the cause of stent clogging Plan: -- Stop Plavix -- CBC pending -- Await repeat IR intervention to declog the biliary stent -- Would draw cultures and start antibiotics is fever ensues Dr Oneil will return tomorrow Problem List - Problems (1) Common bile duct (CBD) stricture Code(s): K83.1 - OBSTRUCTION OF BILE DUCT (2) Elevated LFTs Code(s): R94.5 - ABNORMAL RESULTS OF LIVER FUNCTION STUDIES (3) Jaundice, persistent Code(s): R17 - UNSPECIFIED JAUNDICE (4) Hematobilia Code(s): K83.8 - OTHER SPECIFIED DISEASES OF BILIARY TRACT
--- NOTE | 2019-07-19 11:07 | PN ---
Progress Note, Physician Chief Complaint: ESRD on HD Elevated LFTs History of Present Illness: Previous notes and events reviewed awake and alert NAD LFTs trending down Cholagiogram with IR 07/17/19 leaking from T-tube noted this AM, dressing changed and currently dry and intact - Current Medication List Current Medications: Active Medications Acetaminophen (Tylenol -) 650 mg PO Q6H PRN PRN Reason: PAIN LEVEL 1-5 Aspirin (Asa -) 81 mg PO DAILY [facility] Last Admin: 07/19/19 10:27 Dose: 81 mg Atorvastatin Calcium (Lipitor -) 80 mg PO HS [facility] Last Admin: 07/18/19 21:10 Dose: 80 mg Clopidogrel Bisulfate (Plavix -) 75 mg PO DAILY [facility] Last Admin: 07/18/19 09:15 Dose: 75 mg Dextrose (D50w (Vial) -) 25 gm IVPUSH Q4H PRN PRN Reason: HYPOGLYCEMIA Last Admin: 07/17/19 02:57 Dose: 25 gm Ferrous Sulfate (Feosol -) 325 mg PO DAILY [facility] Last Admin: 07/19/19 10:26 Dose: 325 mg Hydrocortisone (Hytone 0.5% Cream -) 1 applic TP DAILY PRN PRN Reason: FOR ITCHING Midodrine (Proamatine -) 5 mg PO TID-MID [facility] Last Admin: 07/19/19 10:26 Dose: 5 mg Pantoprazole Sodium (Protonix -) 40 mg PO DAILY [facility] Last Admin: 07/19/19 10:26 Dose: 40 mg Sevelamer Carbonate (Renvela -) 800 mg PO TIDCM [facility] Last Admin: 07/19/19 10:27 Dose: 800 mg Tamsulosin HCl (Flomax -) 0.4 mg PO DAILY@0830 [facility] Last Admin: 07/19/19 10:27 Dose: 0.4 mg - Objective Vital Signs: Vital Signs Temperature 98.9 F 07/19/19 06:00 Pulse Rate 95 H 07/19/19 06:00 Respiratory Rate 18 07/19/19 06:00 Blood Pressure 108/51 L 07/19/19 06:00 O2 Sat by Pulse Oximetry (%) 98 07/18/19 21:00 Constitutional: Yes: No Distress, Calm, Other (jaundice) Eyes: Yes: Conjunctiva Clear HENT: Yes: Atraumatic Cardiovascular: Yes: Regular Rate and Rhythm Respiratory: Yes: Regular, CTA Bilaterally Gastrointestinal: Yes: Normal Bowel Sounds, Soft Musculoskeletal: Yes: Muscle Weakness Extremities: Yes: WNL Edema: No Integumentary: Yes: Jaundice Wound/Incision: Yes: Dressing Dry and Intact Neurological: Yes: Alert, Oriented Psychiatric: Yes: Alert, Oriented Labs: CBC, BMP 07/19/19 09:48 INR, PTT INR 1.48 (0.83-1.09) H 07/14/19 22:00 Microbiology 07/14/19 22:00 Blood - Peripheral Venous Blood Culture - Preliminary NO GROWTH OBTAINED AFTER 96 HOURS, INCUBATION TO CONTINUE FOR 1 DAYS. 07/14/19 22:00 Blood - Peripheral Venous Blood Culture - Preliminary NO GROWTH OBTAINED AFTER 96 HOURS, INCUBATION TO CONTINUE FOR 1 DAYS. Problem List - Problems (1) Anemia Assessment/Plan: -Hg 9.4 -monitor Hg daily -transfuse for Hg <7.0 to avoid fluid overload -iron profile: low Fe, low TIBC, high Ferritin -Ferrous Sulfate daily -Epogen x 1 dose in HD Code(s): D64.9 - ANEMIA, UNSPECIFIED (2) BPH (benign prostatic hyperplasia) Assessment/Plan: -Tamsulosin Code(s): N40.0 - BENIGN PROSTATIC HYPERPLASIA WITHOUT LOWER URINRY TRACT SYMP (3) CAD (coronary artery disease) Assessment/Plan: -Aspirin, Atorvastatin -Plavix on hold for cholangigram 07/20/19 Code(s): I25.10 - ATHSCL HEART DISEASE OF [place] CORONARY ARTERY W/O ANG PCTRS (4) Common bile duct (CBD) stricture Assessment/Plan: -GI on board -monitor LFTs for downtrend -s/p cholangiogram with IR yesterday, results pending -Abdominal US shows s/p biliary stent with prominent CBD, mild hepatomegaly with diffuse fatty infiltration of liver -CEA 11.2 -Ca 19-9 135 -repeat Chongiogram 07/20/19 with IR Code(s): K83.1 - OBSTRUCTION OF BILE DUCT (5) Diabetes Assessment/Plan: -BGM ACHS -has been running hypoglycemic -HgA1c 4.5% -Endocrinology consult -Dextrose IVP q4h PRN for BS <65mg/dL Code(s): E11.9 - TYPE 2 DIABETES MELLITUS WITHOUT COMPLICATIONS (6) ESRD (end stage renal disease) on dialysis Assessment/Plan: -Renal on board -continue HD on scheduled days -BUN/Cr 42.4/5.6 -monitor renal function daily Code(s): N18.6 - END STAGE RENAL DISEASE; Z99.2 - DEPENDENCE ON RENAL DIALYSIS (7) Elevated LFTs Assessment/Plan: -AST 212 ALT 114, Alk Phos 611 -GI on board -s/p cholangiogram with IR 07/17/19 -Abdominal US shows s/p biliary stent with prominent CBD, mild hepatomegaly with diffuse fatty infiltration of liver Code(s): R94.5 - ABNORMAL RESULTS OF LIVER FUNCTION STUDIES (8) Elevated troponin Assessment/Plan: -Cardiology on board Code(s): R79.89 - OTHER SPECIFIED ABNORMAL FINDINGS OF BLOOD CHEMISTRY (9) GERD (gastroesophageal reflux disease) Assessment/Plan: -Pantoprazole Code(s): K21.9 - GASTRO-ESOPHAGEAL REFLUX DISEASE WITHOUT ESOPHAGITIS (10) HLD (hyperlipidemia) Assessment/Plan: -Atorvastatin Code(s): E78.5 - HYPERLIPIDEMIA, UNSPECIFIED (11) Hypotension Assessment/Plan: -Midrodine -Cardiology consult -monitor BP Code(s): I95.9 - HYPOTENSION, UNSPECIFIED Assessment/Plan see problem list dvt ppx
[2019-07-19 11:22] LABS: ALBUMIN 1.7 g/dl (3.4-5.0); BLOOD UREA NITROGEN 42.4 mg/dL (7-18); CALCIUM 7.6 mg/dL (8.5-10.1); CREATININE 5.6 mg/dL (0.55-1.3); POTASSIUM 3.9 mmol/L (3.5-5.1); TOT PROT 5.2 g/dl (6.4-8.2)
[2019-07-19] MEDS: CLOPIDOGREL BISULFATE 75 MG TABLET (FP) PO SCH (11:26)
--- NOTE | 2019-07-19 12:30 | PN ---
Progress Note (short form) - Note Progress Note: PULMONARY Denies shortness of breath or chest pain. No abdominal pain, nausea or vomiting. Vital Signs Period Temp Pulse Resp BP Sys/Dunn Pulse Ox Last 24 Hr 97.7 F-99.1 F 80-102 18-18 97-113/44-62 98 Gen: jaundiced Heart: RRR Lung: decreased breath sounds at the bases Abd: soft, nontender Ext:no edema CBC, BMP 07/19/19 09:48 07/19/19 09:48 Active Medications Acetaminophen (Tylenol -) 650 mg PO Q6H PRN PRN Reason: PAIN LEVEL 1-5 Aspirin (Asa -) 81 mg PO DAILY [facility] Last Admin: 07/19/19 10:27 Dose: 81 mg Atorvastatin Calcium (Lipitor -) 80 mg PO HS [facility] Last Admin: 07/18/19 21:10 Dose: 80 mg Clopidogrel Bisulfate (Plavix -) 75 mg PO DAILY [facility] Last Admin: 07/19/19 11:26 Dose: Not Given Dextrose (D50w (Vial) -) 25 gm IVPUSH Q4H PRN PRN Reason: HYPOGLYCEMIA Last Admin: 07/17/19 02:57 Dose: 25 gm Ferrous Sulfate (Feosol -) 325 mg PO DAILY [facility] Last Admin: 07/19/19 10:26 Dose: 325 mg Hydrocortisone (Hytone 0.5% Cream -) 1 applic TP DAILY PRN PRN Reason: FOR ITCHING Midodrine (Proamatine -) 5 mg PO TID-MID [facility] Last Admin: 07/19/19 10:26 Dose: 5 mg Pantoprazole Sodium (Protonix -) 40 mg PO DAILY [facility] Last Admin: 07/19/19 10:26 Dose: 40 mg Sevelamer Carbonate (Renvela -) 800 mg PO TIDCM [facility] Last Admin: 07/19/19 10:27 Dose: 800 mg Tamsulosin HCl (Flomax -) 0.4 mg PO DAILY@0830 [facility] Last Admin: 07/19/19 10:27 Dose: 0.4 mg A/P Elevated LFTs/Obstructive Jaundice ESRD on HD Drug Rash Atelectasis Lactic Acidosis DM CAD +Troponins likely Demand Ischemia GERD BPH - trend LFTs - f/u cholangiogram - for IR eval - GI work up in progress - HD per renal - DVT prophylaxis
--- NOTE | 2019-07-19 21:16 | PN ---
Progress Note (short form) - Note Progress Note: 1. ESRD on HD/ERNIE on CKD on dialysis 2. Erythemaous rash on skin, possible drug rash 3. Suspected PNA 4. Anemia 5. DM type 2 Current Medications Acetaminophen (Tylenol -) 650 mg PO Q6H PRN PRN Reason: PAIN LEVEL 1-5 Aspirin (Asa -) 81 mg PO DAILY [facility] Last Admin: 07/19/19 10:27 Dose: 81 mg Atorvastatin Calcium (Lipitor -) 80 mg PO HS [facility] Last Admin: 07/18/19 21:10 Dose: 80 mg Clopidogrel Bisulfate (Plavix -) 75 mg PO DAILY [facility] Last Admin: 07/19/19 11:26 Dose: Not Given Dextrose (D50w (Vial) -) 25 gm IVPUSH Q4H PRN PRN Reason: HYPOGLYCEMIA Last Admin: 07/17/19 02:57 Dose: 25 gm Ferrous Sulfate (Feosol -) 325 mg PO DAILY [facility] Last Admin: 07/19/19 10:26 Dose: 325 mg Hydrocortisone (Hytone 0.5% Cream -) 1 applic TP DAILY PRN PRN Reason: FOR ITCHING Midodrine (Proamatine -) 5 mg PO TID-MID [facility] Last Admin: 07/19/19 17:44 Dose: 5 mg Pantoprazole Sodium (Protonix -) 40 mg PO DAILY [facility] Last Admin: 07/19/19 10:26 Dose: 40 mg Sevelamer Carbonate (Renvela -) 800 mg PO TIDCM [facility] Last Admin: 07/19/19 17:44 Dose: 800 mg Tamsulosin HCl (Flomax -) 0.4 mg PO DAILY@0830 [facility] Last Admin: 07/19/19 10:27 Dose: 0.4 mg Last Vital Signs Temp Pulse Resp BP Pulse Ox 98.5 F 102 H 18 113/62 98 07/19/19 18:01 07/19/19 18:01 07/19/19 18:01 07/19/19 18:01 07/19/19 09:00 Lungs clear Heart reg Abd soft CBC, BMP 07/19/19 09:48 07/19/19 09:48 CBC, BMP 07/18/19 08:10 07/18/19 08:10 IMP- ESRD Plan next HD MWF tolerated dialysis with 1L UF this am start midodrine 5mg TID for BP support HAMLET with dialysis for anemia management Continue oral DM medications GI follow up for IR study to ensure biliary drain is functional Thank you
[2019-07-19] MEDS: ATORVASTATIN CA 80 MG TABLET (FP) PO SCH (21:55)
[2019-07-20] MEDS: HYDROCORTISONE 0.5% TOPICAL CREAM 30 GM TUBE TP PRN ×2 (08:00→13:44)
--- NOTE | 2019-07-20 08:11 | PN.GI ---
GI Progress Note Subjective: Patient denies abdominal pain, nausea, vomiting, diarrhea, constipation, or melena. LFTs showing downtrend. Bili noted to elevated 8.0. Elevated CEA 11.2 and Ca 19-9 135. Biliary T tube draining bile colored contents. - Objective Vital Signs: Vital Signs Temperature 98.0 F 07/20/19 06:09 Pulse Rate 97 H 07/20/19 06:09 Respiratory Rate 18 07/19/19 22:00 Blood Pressure 107/49 L 07/20/19 06:09 O2 Sat by Pulse Oximetry (%) 96 07/19/19 21:00 Constitutional: No Distress, Calm Eyes: Yes: Conjunctiva Clear HENT: Yes: Atraumatic Cardiovascular: Yes: Regular Rate and Rhythm Respiratory: Yes: Regular, CTA Bilaterally Gastrointestinal Inspection: Yes: WNL. No: Ascites, Distention, Hernia, Scars, Other ...Auscultate: Yes: Normoactive Bowel Sounds. No: Hyperactive Bowel Sounds, Hypoactive Bowel Sounds, No Bowel Sounds, Other ...Palpate: Yes: Soft, Other (Biliary tube notes RUQ). No: Firm/Rigid, Guarding , Hepatomegaly, Mass, Pulsatile Mass, Splenomegaly, Tenderness, Tenderness, Epigastium, Tenderness, Rebound ...Percussion: Yes: Tympanitic. No: Dullness, Fluid Wave, Other Labs: CBC, BMP 07/19/19 09:48 07/19/19 09:48 INR, PTT INR 1.48 (0.83-1.09) H 07/14/19 22:00 Problem List - Problems (1) Elevated LFTs Assessment/Plan: >Abdominal US reviewed and noted with dilated CBD >check LFTs daily to monitor for downtrend Code(s): R94.5 - ABNORMAL RESULTS OF LIVER FUNCTION STUDIES (2) Common bile duct (CBD) stricture Assessment/Plan: r/o clogged biliary stent R> consult Dr Santana for cholangiogram Ca19-9, CEA elevtaed pending IR for repeat de-clogging of biliary tube Code(s): K83.1 - OBSTRUCTION OF BILE DUCT
[2019-07-20] MEDS: SEVELAMER CARBONATE 800 MG TAB (FP) PO SCH ×3 (09:00→17:49)
[2019-07-20 09:12] LABS: HEMOGLOBIN 8.3 GM/dL (11.7-16.9); MCH 28.9 pg (25.7-33.7); MCHC 33.3 g/dl (32.0-35.9); MEAN CELL VOLUME 86.9 fl (80-96); MEAN PLT VOLUME 9.6 fl (7.5-11.1); PLATELET COUNT 116 K/MM3 (134-434); RBC 2.88 M/mm3 (4.00-5.60); RDW 19.2 % (11.9-15.9); WHITE BLOOD COUNT 10.5 K/mm3 (4.0-10.0)
[2019-07-20 09:37] LABS: ALBUMIN 1.5 g/dl (3.4-5.0); BILIRUBIN,TOTAL 7.3 mg/dL (0.2-1); BLOOD UREA NITROGEN 51.3 mg/dL (7-18); CALCIUM 7.3 mg/dL (8.5-10.1); CREATININE 6.5 mg/dL (0.55-1.3); POTASSIUM 3.5 mmol/L (3.5-5.1); TOT PROT 4.7 g/dl (6.4-8.2)
[2019-07-20] MEDS: MIDODRINE HCL 5 MG TABLET PO SCH ×4 (09:51→17:49)
[2019-07-20] MEDS ORDERED: SODIUM CHLORIDE 250 ML IV PRN (11:00)
--- NOTE | 2019-07-20 11:10 | PN ---
Progress Note (short form) - Note Progress Note: Resting in NAD. Denies shortness of breath or chest pain. No acute events overnight. Intake & Output 07/17/19 07/18/19 07/19/19 07/20/19 23:59 23:59 23:59 23:59 Intake Total 5476 793 2810 225 Output Total 250 Balance 1319 202 4153 225 Weight 167 lb 9.6 oz Last Vital Signs Temp Pulse Resp BP Pulse Ox 98.0 F 96 H 18 96/52 L 96 07/20/19 06:09 07/20/19 09:00 07/20/19 09:00 07/20/19 09:00 07/19/19 21:00 Active Medications Acetaminophen (Tylenol -) 650 mg PO Q6H PRN PRN Reason: PAIN LEVEL 1-5 Aspirin (Asa -) 81 mg PO DAILY [facility] Last Admin: 07/19/19 10:27 Dose: 81 mg Atorvastatin Calcium (Lipitor -) 80 mg PO HS [facility] Last Admin: 07/19/19 21:55 Dose: 80 mg Clopidogrel Bisulfate (Plavix -) 75 mg PO DAILY [facility] Last Admin: 07/19/19 11:26 Dose: Not Given Dextrose (D50w (Vial) -) 25 gm IVPUSH Q4H PRN PRN Reason: HYPOGLYCEMIA Last Admin: 07/17/19 02:57 Dose: 25 gm Ferrous Sulfate (Feosol -) 325 mg PO DAILY [facility] Last Admin: 07/19/19 10:26 Dose: 325 mg Hydrocortisone (Hytone 0.5% Cream -) 1 applic TP DAILY PRN PRN Reason: FOR ITCHING Levofloxacin (Levaquin -) 500 mg PO DAILY@0600 [facility] Midodrine (Proamatine -) 5 mg PO TID-MID [facility] Last Admin: 07/20/19 09:51 Dose: 5 mg Pantoprazole Sodium (Protonix -) 40 mg PO DAILY [facility] Last Admin: 07/19/19 10:26 Dose: 40 mg Sevelamer Carbonate (Renvela -) 800 mg PO TIDCM [facility] Last Admin: 07/19/19 17:44 Dose: 800 mg Tamsulosin HCl (Flomax -) 0.4 mg PO DAILY@0830 [facility] Last Admin: 07/19/19 10:27 Dose: 0.4 mg Gen: NAD, jaundiced Heart: RRR Lung: decreased breath sounds at the bases Abd: soft, nontender Ext:no edema Laboratory Results - last 24 hr 07/19/19 07/19/19 07/19/19 09:48 12:09 17:14 WBC RBC Hgb Hct MCV MCH MCHC RDW Plt Count MPV Sodium 134 L Potassium 3.9 Chloride 100 Carbon Dioxide 24 Anion Gap 11 BUN 42.4 H Creatinine 5.6 H Est GFR (CKD-EPI)AfAm 9.59 Est GFR (CKD-EPI)NonAf 8.28 POC Glucometer 111 93 Random Glucose 98 Calcium 7.6 L Total Bilirubin 8.0 H AST 212 H ALT 114 H Alkaline Phosphatase 611 H Total Protein 5.2 L Albumin 1.7 L 07/19/19 07/20/19 07/20/19 23:45 06:22 06:53 WBC RBC Hgb Hct MCV MCH MCHC RDW Plt Count MPV Sodium Potassium Chloride Carbon Dioxide Anion Gap BUN Creatinine Est GFR (CKD-EPI)AfAm Est GFR (CKD-EPI)NonAf POC Glucometer 79 66 90 Random Glucose Calcium Total Bilirubin AST ALT Alkaline Phosphatase Total Protein Albumin 07/20/19 07/20/19 08:30 08:30 WBC 10.5 H RBC 2.88 L Hgb 8.3 L Hct 25.0 L MCV 86.9 MCH 28.9 MCHC 33.3 RDW 19.2 H Plt Count 116 L MPV 9.6 D Sodium 134 L Potassium 3.5 Chloride 97 L Carbon Dioxide 24 Anion Gap 13 BUN 51.3 H Creatinine 6.5 H Est GFR (CKD-EPI)AfAm 8.01 Est GFR (CKD-EPI)NonAf 6.91 POC Glucometer Random Glucose 144 H Calcium 7.3 L Total Bilirubin 7.3 H AST 189 H ALT 97 H Alkaline Phosphatase 587 H Total Protein 4.7 L Albumin 1.5 L A/P Elevated LFTs/Obstructive Jaundice ESRD on HD Drug Rash Atelectasis Lactic Acidosis DM CAD +Troponins likely Demand Ischemia GERD BPH - GI workup in progress - for IR eval - HD per renal - DVT prophylaxis Dr Martinez
--- NOTE | 2019-07-20 12:36 | PN ---
Progress Note, Physician Chief Complaint: patient seen and examined in HD had cholangiogram on 07/17 - Current Medication List Current Medications: Active Medications Acetaminophen (Tylenol -) 650 mg PO Q6H PRN PRN Reason: PAIN LEVEL 1-5 Aspirin (Asa -) 81 mg PO DAILY [facility] Last Admin: 07/19/19 10:27 Dose: 81 mg Atorvastatin Calcium (Lipitor -) 80 mg PO HS [facility] Last Admin: 07/19/19 21:55 Dose: 80 mg Clopidogrel Bisulfate (Plavix -) 75 mg PO DAILY [facility] Last Admin: 07/19/19 11:26 Dose: Not Given Dextrose (D50w (Vial) -) 25 gm IVPUSH Q4H PRN PRN Reason: HYPOGLYCEMIA Last Admin: 07/17/19 02:57 Dose: 25 gm Ferrous Sulfate (Feosol -) 325 mg PO DAILY [facility] Last Admin: 07/19/19 10:26 Dose: 325 mg Hydrocortisone (Hytone 0.5% Cream -) 1 applic TP DAILY PRN PRN Reason: FOR ITCHING Levofloxacin (Levaquin -) 500 mg PO DAILY@0600 [facility] Midodrine (Proamatine -) 5 mg PO TID-MID [facility] Last Admin: 07/20/19 09:51 Dose: 5 mg Pantoprazole Sodium (Protonix -) 40 mg PO DAILY [facility] Last Admin: 07/19/19 10:26 Dose: 40 mg Sevelamer Carbonate (Renvela -) 800 mg PO TIDCM [facility] Last Admin: 07/19/19 17:44 Dose: 800 mg Tamsulosin HCl (Flomax -) 0.4 mg PO DAILY@0830 [facility] Last Admin: 07/19/19 10:27 Dose: 0.4 mg - Objective Vital Signs: Vital Signs Temperature 98.0 F 07/20/19 12:24 Pulse Rate 103 H 07/20/19 12:24 Respiratory Rate 20 07/20/19 12:24 Blood Pressure 124/61 07/20/19 12:24 O2 Sat by Pulse Oximetry (%) 96 07/19/19 21:00 Labs: CBC, BMP 07/20/19 08:30 07/20/19 08:30 INR, PTT INR 1.48 (0.83-1.09) H 07/14/19 22:00 Problem List - Problems (1) Anemia Code(s): D64.9 - ANEMIA, UNSPECIFIED (2) BPH (benign prostatic hyperplasia) Code(s): N40.0 - BENIGN PROSTATIC HYPERPLASIA WITHOUT LOWER URINRY TRACT SYMP (3) Diabetes Code(s): E11.9 - TYPE 2 DIABETES MELLITUS WITHOUT COMPLICATIONS (4) Hypotension Code(s): I95.9 - HYPOTENSION, UNSPECIFIED (5) ESRD (end stage renal disease) on dialysis Code(s): N18.6 - END STAGE RENAL DISEASE; Z99.2 - DEPENDENCE ON RENAL DIALYSIS
--- NOTE | 2019-07-20 12:45 | PN ---
Progress Note (short form) - Note Progress Note: Renal follow up for ESRD on HD Seen and examined during dialysis BP stable, access with good flow complains of back discomfort from laying in one spot too long no sob, chest pain skin rash is improved Vital Signs Temperature 98.0 F 07/20/19 12:24 Pulse Rate 103 H 07/20/19 12:24 Respiratory Rate 20 07/20/19 12:24 Blood Pressure 124/61 07/20/19 12:24 O2 Sat by Pulse Oximetry (%) 96 07/19/19 21:00 Intake & Output 07/17/19 07/18/19 07/19/19 07/20/19 23:59 23:59 23:59 23:59 Intake Total 2672 233 1030 885 Output Total 250 1100 Balance 2312 630 8071 -215 Weight 76.022 kg NAD, Jaundice RRR CTA, no rales or wheeze soft NT/ND rash improving no LE edema, clubbing or cyanosis CBC, BMP 07/20/19 08:30 07/20/19 08:30 Current Medications Acetaminophen (Tylenol -) 650 mg PO Q6H PRN PRN Reason: PAIN LEVEL 1-5 Aspirin (Asa -) 81 mg PO DAILY [facility] Last Admin: 07/19/19 10:27 Dose: 81 mg Atorvastatin Calcium (Lipitor -) 80 mg PO HS [facility] Last Admin: 07/19/19 21:55 Dose: 80 mg Clopidogrel Bisulfate (Plavix -) 75 mg PO DAILY [facility] Last Admin: 07/19/19 11:26 Dose: Not Given Dextrose (D50w (Vial) -) 25 gm IVPUSH Q4H PRN PRN Reason: HYPOGLYCEMIA Last Admin: 07/17/19 02:57 Dose: 25 gm Ferrous Sulfate (Feosol -) 325 mg PO DAILY [facility] Last Admin: 07/19/19 10:26 Dose: 325 mg Hydrocortisone (Hytone 0.5% Cream -) 1 applic TP DAILY PRN PRN Reason: FOR ITCHING Levofloxacin (Levaquin -) 500 mg PO DAILY@0600 [facility] Midodrine (Proamatine -) 5 mg PO TID-MID [facility] Last Admin: 07/20/19 09:51 Dose: 5 mg Pantoprazole Sodium (Protonix -) 40 mg PO DAILY [facility] Last Admin: 07/19/19 10:26 Dose: 40 mg Sevelamer Carbonate (Renvela -) 800 mg PO TIDCM [facility] Last Admin: 07/19/19 17:44 Dose: 800 mg Tamsulosin HCl (Flomax -) 0.4 mg PO DAILY@0830 [facility] Last Admin: 07/19/19 10:27 Dose: 0.4 mg 88 year old gentleman with history of CKD with ERNIE now on dialysis (6 weeks), biliary obstruction with indwelling biliary drain, pancreatitis, anemia, CAD, BPH, GERD who who presented [place] with diffuse erythematous rash after being on antibiotics for suspected PNA. 1. ESRD on HD/ERNIE on CKD on dialysis 2. Erythemaous rash on skin, possible drug rash 3. Suspected PNA 4. Anemia 5. DM type 2 Tolerated dialysis well this am continue PO Abx as per ID for IR colangiogram GI follow up Thank you Brandon Perez DO
[2019-07-20] MEDS: FERROUS SO4 325 MG TABLET (FP) PO SCH (13:42)
[2019-07-20] MEDS: TAMSULOSIN HCL 0.4 MG CAP PO SCH (13:42)
[2019-07-20] MEDS: PANTOPRAZOLE 40 MG TABLET PO SCH (13:42)
[2019-07-20] MEDS: ASPIRIN 81 MG CHEWABLE TABLETS PO SCH (13:43)
--- NOTE | 2019-07-20 18:15 | PN ---
Progress Note, Physician History of Present Illness: AWAKE, ALERT IN BED OFFERS NO COMPLAINTS AFEBRILE JAUNDICED RASH RESOLVED C/S NO GROWTH - Current Medication List Current Medications: Active Medications Acetaminophen (Tylenol -) 650 mg PO Q6H PRN PRN Reason: PAIN LEVEL 1-5 Aspirin (Asa -) 81 mg PO DAILY [facility] Last Admin: 07/20/19 13:43 Dose: 81 mg Atorvastatin Calcium (Lipitor -) 80 mg PO HS [facility] Last Admin: 07/19/19 21:55 Dose: 80 mg Clopidogrel Bisulfate (Plavix -) 75 mg PO DAILY [facility] Last Admin: 07/19/19 11:26 Dose: Not Given Dextrose (D50w (Vial) -) 25 gm IVPUSH Q4H PRN PRN Reason: HYPOGLYCEMIA Last Admin: 07/17/19 02:57 Dose: 25 gm Ferrous Sulfate (Feosol -) 325 mg PO DAILY [facility] Last Admin: 07/20/19 13:42 Dose: 325 mg Hydrocortisone (Hytone 0.5% Cream -) 1 applic TP DAILY PRN PRN Reason: FOR ITCHING Last Admin: 07/20/19 13:44 Dose: 1 applic Levofloxacin (Levaquin -) 500 mg PO DAILY@0600 [facility] Midodrine (Proamatine -) 5 mg PO TID-MID [facility] Last Admin: 07/20/19 17:49 Dose: 5 mg Pantoprazole Sodium (Protonix -) 40 mg PO DAILY [facility] Last Admin: 07/20/19 13:42 Dose: 40 mg Sevelamer Carbonate (Renvela -) 800 mg PO TIDCM [facility] Last Admin: 07/20/19 17:49 Dose: 800 mg Tamsulosin HCl (Flomax -) 0.4 mg PO DAILY@0830 [facility] Last Admin: 07/20/19 13:42 Dose: 0.4 mg - Objective Vital Signs: Vital Signs Temperature 98.1 F 07/20/19 15:20 Pulse Rate 109 H 07/20/19 15:20 Respiratory Rate 20 07/20/19 15:20 Blood Pressure 104/52 L 07/20/19 15:20 O2 Sat by Pulse Oximetry (%) 96 07/20/19 13:00 Constitutional: Yes: No Distress Eyes: Yes: Conjunctiva Clear, Sclera Icterus Cardiovascular: Yes: Regular Rate and Rhythm, S1, S2 Respiratory: Yes: Diminished Gastrointestinal: Yes: Normal Bowel Sounds, Soft, Other (CATHETER IN PLACE). No : Tenderness Edema: Yes Labs: CBC, BMP 07/20/19 08:30 07/20/19 08:30 INR, PTT INR 1.48 (0.83-1.09) H 07/14/19 22:00 Assessment/Plan LEUKOCYTOSIS BILIARY OBSTRUCTION S/P PERCUTANEOUS DRAIN OBSERVE OFF ANTIBIOTICS
[2019-07-20] MEDS: ATORVASTATIN CA 80 MG TABLET (FP) PO SCH (22:51)
[2019-07-20] MEDS ORDERED: HYDROCORTISONE 0.5% TOPICAL CREAM 30 GM TUBE TP ONE (23:10)
--- NOTE | 2019-07-21 00:08 | PN ---
Progress Note, Physician Chief Complaint: sitting in bed no complaint - Current Medication List Current Medications: Active Medications Acetaminophen (Tylenol -) 650 mg PO Q6H PRN PRN Reason: PAIN LEVEL 1-5 Aspirin (Asa -) 81 mg PO DAILY [facility] Last Admin: 07/20/19 13:43 Dose: 81 mg Atorvastatin Calcium (Lipitor -) 80 mg PO HS [facility] Last Admin: 07/20/19 22:51 Dose: 80 mg Clopidogrel Bisulfate (Plavix -) 75 mg PO DAILY [facility] Last Admin: 07/19/19 11:26 Dose: Not Given Dextrose (D50w (Vial) -) 25 gm IVPUSH Q4H PRN PRN Reason: HYPOGLYCEMIA Last Admin: 07/17/19 02:57 Dose: 25 gm Ferrous Sulfate (Feosol -) 325 mg PO DAILY [facility] Last Admin: 07/20/19 13:42 Dose: 325 mg Hydrocortisone (Hytone 0.5% Cream -) 1 applic TP DAILY PRN PRN Reason: FOR ITCHING Last Admin: 07/20/19 13:44 Dose: 1 applic Hydrocortisone (Hytone 0.5% Cream -) 1 applic TP ONCE ONE Stop: 07/20/19 23:11 Levofloxacin (Levaquin -) 500 mg PO DAILY@0600 [facility] Midodrine (Proamatine -) 5 mg PO TID-MID [facility] Last Admin: 07/20/19 17:49 Dose: 5 mg Pantoprazole Sodium (Protonix -) 40 mg PO DAILY [facility] Last Admin: 07/20/19 13:42 Dose: 40 mg Sevelamer Carbonate (Renvela -) 800 mg PO TIDCM [facility] Last Admin: 07/20/19 17:49 Dose: 800 mg Tamsulosin HCl (Flomax -) 0.4 mg PO DAILY@0830 [facility] Last Admin: 07/20/19 13:42 Dose: 0.4 mg - Objective Vital Signs: Vital Signs Temperature 98.5 F 07/20/19 18:00 Pulse Rate 65 07/20/19 18:00 Respiratory Rate 20 07/20/19 18:00 Blood Pressure 105/47 L 07/20/19 18:00 O2 Sat by Pulse Oximetry (%) 96 07/20/19 13:00 Constitutional: Yes: Calm Eyes: Yes: EOM Intact HENT: Yes: Normocephalic Neck: Yes: Trachea Midline Cardiovascular: Yes: Regular Rate and Rhythm Respiratory: Yes: CTA Bilaterally Gastrointestinal: Yes: Normal Bowel Sounds ...Rectal Exam: Yes: Deferred Breast(s): Yes: WNL Musculoskeletal: Yes: Joint Swelling, Muscle Weakness Extremities: Yes: WNL Edema: Yes Edema: LLE: 1+, RLE: 1+ Neurological: Yes: Alert, Oriented Labs: CBC, BMP 07/20/19 08:30 07/20/19 08:30 INR, PTT INR 1.48 (0.83-1.09) H 07/14/19 22:00 Problem List - Problems (1) Hypoglycemia associated with type 2 diabetes mellitus Code(s): E11.649 - TYPE 2 DIABETES MELLITUS WITH HYPOGLYCEMIA WITHOUT COMA (2) Anemia Code(s): D64.9 - ANEMIA, UNSPECIFIED (3) BPH (benign prostatic hyperplasia) Code(s): N40.0 - BENIGN PROSTATIC HYPERPLASIA WITHOUT LOWER URINRY TRACT SYMP (4) CAD (coronary artery disease) Code(s): I25.10 - ATHSCL HEART DISEASE OF [place] CORONARY ARTERY W/O ANG PCTRS (5) Common bile duct (CBD) stricture Code(s): K83.1 - OBSTRUCTION OF BILE DUCT (6) Diabetes Code(s): E11.9 - TYPE 2 DIABETES MELLITUS WITHOUT COMPLICATIONS (7) ESRD (end stage renal disease) on dialysis Code(s): N18.6 - END STAGE RENAL DISEASE; Z99.2 - DEPENDENCE ON RENAL DIALYSIS (8) Elevated LFTs Code(s): R94.5 - ABNORMAL RESULTS OF LIVER FUNCTION STUDIES (9) Elevated lactic acid level Code(s): R79.89 - OTHER SPECIFIED ABNORMAL FINDINGS OF BLOOD CHEMISTRY Assessment/Plan Current Active Problems Anemia (Acute) BPH (benign prostatic hyperplasia) (Acute) CAD (coronary artery disease) (Acute) Common bile duct (CBD) stricture (Acute) Diabetes (Acute) ESRD (end stage renal disease) on dialysis (Acute) Elevated LFTs (Acute) Elevated lactic acid level (Acute) Elevated troponin (Acute) GERD (gastroesophageal reflux disease) (Acute) HLD (hyperlipidemia) (Acute) HTN (hypertension) (Acute) Hematobilia (Acute) Hypoglycemia associated with type 2 diabetes mellitus (Acute) Hypotension (Acute) Jaundice, persistent (Acute) Pleural effusion (Acute) Rash and nonspecific skin eruption (Acute) Abnormal Lab Results 07/20/19 07/20/19 08:30 08:30 WBC 10.5 H RBC 2.88 L Hgb 8.3 L Hct 25.0 L RDW 19.2 H Plt Count 116 L Sodium 134 L Chloride 97 L BUN 51.3 H Creatinine 6.5 H Random Glucose 144 H Calcium 7.3 L Total Bilirubin 7.3 H AST 189 H ALT 97 H Alkaline Phosphatase 587 H Total Protein 4.7 L Albumin 1.5 L Laboratory Results - last 24 hr 07/20/19 07/20/19 07/20/19 06:22 06:53 08:30 WBC 10.5 H RBC 2.88 L Hgb 8.3 L Hct 25.0 L MCV 86.9 MCH 28.9 MCHC 33.3 RDW 19.2 H Plt Count 116 L MPV 9.6 D Sodium Potassium Chloride Carbon Dioxide Anion Gap BUN Creatinine Est GFR (CKD-EPI)AfAm Est GFR (CKD-EPI)NonAf POC Glucometer 66 90 Random Glucose Calcium Total Bilirubin AST ALT Alkaline Phosphatase Total Protein Albumin 07/20/19 07/20/19 07/20/19 08:30 17:19 22:48 WBC RBC Hgb Hct MCV MCH MCHC RDW Plt Count MPV Sodium 134 L Potassium 3.5 Chloride 97 L Carbon Dioxide 24 Anion Gap 13 BUN 51.3 H Creatinine 6.5 H Est GFR (CKD-EPI)AfAm 8.01 Est GFR (CKD-EPI)NonAf 6.91 POC Glucometer 93 131 Random Glucose 144 H Calcium 7.3 L Total Bilirubin 7.3 H AST 189 H ALT 97 H Alkaline Phosphatase 587 H Total Protein 4.7 L Albumin 1.5 L plan: bgm qid as glucose remains stable no need for diabetic agents will dec bgm tid ac
[2019-07-21 09:06] LABS: ALBUMIN 1.5 g/dl (3.4-5.0); BILIRUBIN,TOTAL 7.6 mg/dL (0.2-1); BLOOD UREA NITROGEN 24.3 mg/dL (7-18); CREATININE 3.9 mg/dL (0.55-1.3); POTASSIUM 3.3 mmol/L (3.5-5.1); TOT PROT 4.8 g/dl (6.4-8.2)
[2019-07-21] MEDS: SEVELAMER CARBONATE 800 MG TAB (FP) PO SCH ×3 (09:35→17:39)
[2019-07-21] MEDS: FERROUS SO4 325 MG TABLET (FP) PO SCH (09:35)
[2019-07-21] MEDS: ASPIRIN 81 MG CHEWABLE TABLETS PO SCH (09:35)
[2019-07-21] MEDS: MIDODRINE HCL 5 MG TABLET PO SCH ×3 (09:35→21:48)
[2019-07-21] MEDS: TAMSULOSIN HCL 0.4 MG CAP PO SCH (09:35)
[2019-07-21] MEDS: PANTOPRAZOLE 40 MG TABLET PO SCH (09:35)
[2019-07-21] MEDS: HYDROCORTISONE 0.5% TOPICAL CREAM 30 GM TUBE TP PRN (09:59)
--- NOTE | 2019-07-21 11:01 | PN ---
Progress Note, Physician Chief Complaint: ESRD on HD Elevated LFTs History of Present Illness: NAD Had Cholangiogram- unknown results Spoke to GI, stent might need to be replaced or f/u o/p with Dr White at [facility] - Current Medication List Current Medications: Active Medications Acetaminophen (Tylenol -) 650 mg PO Q6H PRN PRN Reason: PAIN LEVEL 1-5 Aspirin (Asa -) 81 mg PO DAILY [facility] Last Admin: 07/21/19 09:35 Dose: 81 mg Atorvastatin Calcium (Lipitor -) 80 mg PO HS [facility] Last Admin: 07/20/19 22:51 Dose: 80 mg Clopidogrel Bisulfate (Plavix -) 75 mg PO DAILY [facility] Last Admin: 07/19/19 11:26 Dose: Not Given Dextrose (D50w (Vial) -) 25 gm IVPUSH Q4H PRN PRN Reason: HYPOGLYCEMIA Last Admin: 07/17/19 02:57 Dose: 25 gm Ferrous Sulfate (Feosol -) 325 mg PO DAILY [facility] Last Admin: 07/21/19 09:35 Dose: 325 mg Hydrocortisone (Hytone 0.5% Cream -) 1 applic TP DAILY PRN PRN Reason: FOR ITCHING Last Admin: 07/21/19 09:59 Dose: 1 applic Levofloxacin (Levaquin -) 500 mg PO DAILY@0600 [facility] Midodrine (Proamatine -) 5 mg PO TID-MID [facility] Last Admin: 07/21/19 09:35 Dose: 5 mg Pantoprazole Sodium (Protonix -) 40 mg PO DAILY [facility] Last Admin: 07/21/19 09:35 Dose: 40 mg Sevelamer Carbonate (Renvela -) 800 mg PO TIDCM [facility] Last Admin: 07/21/19 09:35 Dose: 800 mg Tamsulosin HCl (Flomax -) 0.4 mg PO DAILY@0830 [facility] Last Admin: 07/21/19 09:35 Dose: 0.4 mg - Objective Vital Signs: Vital Signs Temperature 98.2 F 07/21/19 06:00 Pulse Rate 93 H 07/21/19 06:00 Respiratory Rate 20 07/21/19 06:00 Blood Pressure 96/48 L 07/21/19 06:00 O2 Sat by Pulse Oximetry (%) 97 07/20/19 21:00 Constitutional: Yes: Well Nourished, No Distress, Calm HENT: Yes: Other (icteric sclera) Cardiovascular: Yes: Regular Rate and Rhythm Respiratory: Yes: Regular Gastrointestinal: Yes: Normal Bowel Sounds, Soft, Abdomen, Obese, Other ( Drainage with bile material) Genitourinary: Yes: WNL Musculoskeletal: Yes: Muscle Weakness Extremities: Yes: WNL Edema: No Peripheral Pulses WNL: Yes Integumentary: Yes: Jaundice Neurological: Yes: Alert, Oriented Psychiatric: Yes: Alert, Oriented Labs: CBC, BMP 07/20/19 08:30 07/21/19 07:20 INR, PTT INR 1.48 (0.83-1.09) H 07/14/19 22:00 Problem List - Problems (1) Anemia Assessment/Plan: -likely 2/2 to CKD -monitor trend -Iron stores are normal Problems reviewed: Yes Code(s): D64.9 - ANEMIA, UNSPECIFIED (2) Common bile duct (CBD) stricture Assessment/Plan: -IR to replace stent -Repeat labs in AM Problems reviewed: Yes Code(s): K83.1 - OBSTRUCTION OF BILE DUCT (3) ESRD (end stage renal disease) on dialysis Assessment/Plan: -nephrology on board -HD as per nephrology Problems reviewed: Yes Code(s): N18.6 - END STAGE RENAL DISEASE; Z99.2 - DEPENDENCE ON RENAL DIALYSIS (4) Elevated LFTs Assessment/Plan: -Seen by GI -Likely 2/2 to CBD stricture -replace stent -monitor trend Problems reviewed: Yes Code(s): R94.5 - ABNORMAL RESULTS OF LIVER FUNCTION STUDIES Assessment/Plan see problem list
--- NOTE | 2019-07-21 12:57 | PN ---
Progress Note, Physician History of Present Illness: pulmonary alert,feels weak,-sob - Current Medication List Current Medications: Active Medications Acetaminophen (Tylenol -) 650 mg PO Q6H PRN PRN Reason: PAIN LEVEL 1-5 Aspirin (Asa -) 81 mg PO DAILY [facility] Last Admin: 07/21/19 09:35 Dose: 81 mg Atorvastatin Calcium (Lipitor -) 80 mg PO HS [facility] Last Admin: 07/20/19 22:51 Dose: 80 mg Clopidogrel Bisulfate (Plavix -) 75 mg PO DAILY [facility] Last Admin: 07/19/19 11:26 Dose: Not Given Dextrose (D50w (Vial) -) 25 gm IVPUSH Q4H PRN PRN Reason: HYPOGLYCEMIA Last Admin: 07/17/19 02:57 Dose: 25 gm Ferrous Sulfate (Feosol -) 325 mg PO DAILY [facility] Last Admin: 07/21/19 09:35 Dose: 325 mg Hydrocortisone (Hytone 0.5% Cream -) 1 applic TP DAILY PRN PRN Reason: FOR ITCHING Last Admin: 07/21/19 09:59 Dose: 1 applic Levofloxacin (Levaquin -) 500 mg PO DAILY@0600 [facility] Midodrine (Proamatine -) 5 mg PO TID-MID [facility] Last Admin: 07/21/19 09:35 Dose: 5 mg Pantoprazole Sodium (Protonix -) 40 mg PO DAILY [facility] Last Admin: 07/21/19 09:35 Dose: 40 mg Sevelamer Carbonate (Renvela -) 800 mg PO TIDCM [facility] Last Admin: 07/21/19 09:35 Dose: 800 mg Tamsulosin HCl (Flomax -) 0.4 mg PO DAILY@0830 [facility] Last Admin: 07/21/19 09:35 Dose: 0.4 mg - Objective Vital Signs: Vital Signs Temperature 98.2 F 07/21/19 06:00 Pulse Rate 93 H 07/21/19 06:00 Respiratory Rate 20 07/21/19 06:00 Blood Pressure 96/48 L 07/21/19 06:00 O2 Sat by Pulse Oximetry (%) 97 07/20/19 21:00 Constitutional: Yes: Well Nourished, Calm Eyes: Yes: WNL HENT: Yes: WNL Neck: Yes: WNL Cardiovascular: Yes: Regular Rate and Rhythm, S1, S2 Respiratory: Yes: CTA Bilaterally Gastrointestinal: Yes: Normal Bowel Sounds, Soft Extremities: Yes: WNL Edema: Yes Integumentary: Yes: Jaundice Labs: CBC, BMP 07/20/19 08:30 07/21/19 07:20 INR, PTT INR 1.48 (0.83-1.09) H 07/14/19 22:00 Problem List - Problems (1) Anemia Code(s): D64.9 - ANEMIA, UNSPECIFIED (2) CAD (coronary artery disease) Code(s): I25.10 - ATHSCL HEART DISEASE OF [place] CORONARY ARTERY W/O ANG PCTRS (3) ESRD (end stage renal disease) on dialysis Code(s): N18.6 - END STAGE RENAL DISEASE; Z99.2 - DEPENDENCE ON RENAL DIALYSIS (4) Elevated LFTs Code(s): R94.5 - ABNORMAL RESULTS OF LIVER FUNCTION STUDIES (5) Elevated lactic acid level Code(s): R79.89 - OTHER SPECIFIED ABNORMAL FINDINGS OF BLOOD CHEMISTRY (6) Rash and nonspecific skin eruption Code(s): R21 - RASH AND OTHER NONSPECIFIC SKIN ERUPTION Assessment/Plan Assessment/Plan Elevated LFTs improving ESRD on HD Drug Rash Atelectasis Lactic Acidosis DM CAD +Troponins likely Demand Ischemia GERD BPH Obstructive jaundice s/p biliary drain - monitor lytes - trend LFTs - GI work up in progress - HD per renal - DVT prophylaxis DR LORA
[2019-07-21] MEDS ORDERED: PROCHLORPERAZINE MALEATE 5 MG TABLET PO ONE (20:40)
--- NOTE | 2019-07-21 21:04 | HOSP ---
Subjective - Review of Symptoms Events since last encounter: hospitalist encounter Notified by the RN that the patient is nauseous, feeling unwell- tachycardiac 120, BP 99/44, T 99.4 oral, 101.8 rectal. Was asked to assess Assessment: 88 year old male with PMH pancreatitis, type II DM, chronic kidney disease, anemia, CAD, BPH, GERD, who presented to the ED from [facility] for evaluation of left lower lobe infiltrate on xray. Obstructive jaundice s/p biliary drain POD #0 The patient is DNR/DNI. Plan: EKG stat CBC stat CMP stat Lactic Acid stat Blood Cultures x2 stat Gastrointestinal: Yes: Nausea Physical Examination Vital Signs: Vital Signs Temperature 97.8 F 07/21/19 18:00 Pulse Rate 100 H 07/21/19 18:00 Respiratory Rate 18 07/21/19 18:00 Blood Pressure 108/55 L 07/21/19 18:00 O2 Sat by Pulse Oximetry (%) 97 07/21/19 14:48 Constitutional: Yes: Mild Distress Eyes: Yes: Sclera Icterus HENT: Yes: WNL, Atraumatic, Normocephalic Neck: Yes: WNL, Supple, Trachea Midline Cardiovascular: Yes: Tachycardia, S1, S2 Respiratory: Yes: Diminished, On Nasal O2, Rhonchi Gastrointestinal: Yes: Other (drainage tube noted with DSD) Edema: No Peripheral Pulses WNL: Yes Integumentary: Yes: Jaundice Neurological: Yes: Alert, Oriented (x2) Psychiatric: Yes: Alert, Oriented (x2) Labs: CBC, BMP 07/20/19 08:30 07/21/19 07:20 Hospitalist Encounter Outcome: EKG- reviewed rate now 119 no further changes compared to prior study Labs pending 0027- lactic resulted 4.3 Will treat for Sepsis NS 250ml bolus ordered, will order ABX empirically to treat HAP Chest Xray-pending NS 250ml bolus #2 ordered- BP 72/50, P 104 per fish net maker Total Critical Care Time (in minutes): 40 Critical Care Statement: The care of this patient involved high complexity decision making to prevent further life threatening deterioration of the patient 's condition and/or to evaluate & treat vital organ system(s) failure or risk of failure.
[2019-07-21] MEDS: ATORVASTATIN CA 80 MG TABLET (FP) PO SCH (21:48)
[2019-07-21 23:42] LABS: BASO % 0.4 % (0-2.0); EOS % 2.2 % (0-4.5); HEMATOCRIT 29.6 % (35.4-49); HEMOGLOBIN 9.7 GM/dL (11.7-16.9); LYMPH % 3.9 % (8-40); MCH 28.9 pg (25.7-33.7); MCHC 32.8 g/dl (32.0-35.9); MEAN CELL VOLUME 87.9 fl (80-96); MEAN PLT VOLUME 9.2 fl (7.5-11.1); MONO % 3.4 % (3.8-10.2); NEUT % 90.1 % (42.8-82.8); PLATELET COUNT 94 K/MM3 (134-434); RBC 3.37 M/mm3 (4.00-5.60); RDW 18.4 % (11.9-15.9); WHITE BLOOD COUNT 9.3 K/mm3 (4.0-10.0)
[2019-07-22 00:19] LABS: ALBUMIN 1.6 g/dl (3.4-5.0); BILIRUBIN,TOTAL 8.6 mg/dL (0.2-1); BLOOD UREA NITROGEN 28.8 mg/dL (7-18); CALCIUM 8.1 mg/dL (8.5-10.1); CREATININE 4.8 mg/dL (0.55-1.3); POTASSIUM 3.6 mmol/L (3.5-5.1); TOT PROT 5.2 g/dl (6.4-8.2)
[2019-07-22] MEDS ORDERED: SODIUM CHLORIDE 250 ML IV STA ×2 (00:37→03:25)
[2019-07-22 03:30] LABS: ANISOCYTOSIS 1+
[2019-07-22 03:31] LABS: PLATELET ESTIMATE DECREASED
--- NOTE | 2019-07-22 08:07 | PN.GI ---
GI Progress Note Subjective: Patient had T-tube change yesterday with IR. Complain of nausea, but denies vomiting or abdominal pain. Denies diarrhea, constipation, rectal bleeding. T- tube is draining dark colored bile. Labs showing uptrend in LFTs. - Objective Vital Signs: Vital Signs Temperature 101.8 F H 07/21/19 21:00 Pulse Rate 121 H 07/21/19 20:58 Respiratory Rate 18 07/21/19 20:58 Blood Pressure 99/44 L 07/21/19 20:58 O2 Sat by Pulse Oximetry (%) 97 07/21/19 14:48 Constitutional: No Distress, Calm Eyes: Yes: Conjunctiva Clear HENT: Yes: Atraumatic Cardiovascular: Yes: Regular Rate and Rhythm Respiratory: Yes: Regular, Diminished, On Nasal O2 Gastrointestinal Inspection: Yes: WNL. No: Ascites, Distention, Hernia, Scars, Other ...Auscultate: Yes: Normoactive Bowel Sounds. No: Hyperactive Bowel Sounds, Hypoactive Bowel Sounds, No Bowel Sounds, Other ...Palpate: Yes: Soft. No: Firm/Rigid, Guarding, Hepatomegaly, Mass, Pulsatile Mass, Splenomegaly, Tenderness, Tenderness, Epigastium, Tenderness, Rebound, Other ...Percussion: Yes: Tympanitic. No: Dullness, Fluid Wave, Other Wound/Incision: Yes: Dressing Dry and Intact Neurological: Yes: Alert, Oriented Psychiatric: Yes: Alert, Oriented Labs: CBC, BMP 07/21/19 23:26 07/21/19 23:26 INR, PTT INR 1.48 (0.83-1.09) H 07/14/19 22:00 Active Medications Generic Name Dose Route Start Last Admin Trade Name Freq PRN Reason Stop Dose Admin Acetaminophen 650 mg 07/15/19 20:42 07/21/19 21:48 Tylenol - PO 650 mg Q6H PRN Administration PAIN LEVEL 1-5 Aspirin 81 mg 07/16/19 10:00 07/21/19 09:35 Asa - PO 81 mg DAILY [facility] Administration Atorvastatin Calcium 80 mg 07/15/19 22:00 07/21/19 21:48 Lipitor - PO 80 mg HS [facility] Administration Clopidogrel Bisulfate 75 mg 07/16/19 10:00 07/19/19 11:26 Plavix - PO Not Given DAILY [facility] Dextrose 25 gm 07/16/19 11:30 07/17/19 02:57 D50w (Vial) - IVPUSH 25 gm Q4H PRN Administration HYPOGLYCEMIA Ferrous Sulfate 325 mg 07/16/19 10:00 07/21/19 09:35 Feosol - PO 325 mg DAILY [facility] Administration Hydrocortisone 1 applic 07/16/19 12:44 07/21/19 09:59 Hytone 0.5% Cream - TP 1 applic DAILY PRN Administration FOR ITCHING Midodrine 5 mg 07/17/19 14:00 07/21/19 21:48 Proamatine - PO 5 mg TID-MID [facility] Administration Pantoprazole Sodium 40 mg 07/16/19 10:00 07/21/19 09:35 Protonix - PO 40 mg DAILY [facility] Administration Sevelamer Carbonate 800 mg 07/17/19 17:30 07/21/19 17:39 Renvela - PO Not Given TIDCM [facility] Tamsulosin HCl 0.4 mg 07/16/19 08:30 07/21/19 09:35 Flomax - PO 0.4 mg DAILY@0830 [facility] Administration Problem List - Problems (1) Elevated LFTs Assessment/Plan: >Abdominal US reviewed and noted with dilated CBD >check LFTs daily to monitor for downtrend Code(s): R94.5 - ABNORMAL RESULTS OF LIVER FUNCTION STUDIES (2) Common bile duct (CBD) stricture Assessment/Plan: r/o clogged biliary stent R> T-tube change 07/21/19 with IR Ca19-9, CEA elevtaed Code(s): K83.1 - OBSTRUCTION OF BILE DUCT
[2019-07-22] MEDS ORDERED: SODIUM CHLORIDE 250 ML IV PRN ×2 (09:37→12:14)
[2019-07-22] MEDS: TAMSULOSIN HCL 0.4 MG CAP PO SCH (09:54)
[2019-07-22] MEDS: SEVELAMER CARBONATE 800 MG TAB (FP) PO SCH ×3 (09:54→18:02)
[2019-07-22] MEDS ORDERED: EPOETIN ALFA 2,000 UNIT/1 ML VIAL IVPUSH ONE (10:00)
[2019-07-22] MEDS: MIDODRINE HCL 5 MG TABLET PO SCH ×4 (10:08→18:02)
[2019-07-22 10:14] LABS: BASO % 0.3 % (0-2.0); EOS % 0.7 % (0-4.5); HEMATOCRIT 27.7 % (35.4-49); HEMOGLOBIN 8.8 GM/dL (11.7-16.9); LYMPH % 3.6 % (8-40); MCH 28.2 pg (25.7-33.7); MCHC 31.8 g/dl (32.0-35.9); MEAN CELL VOLUME 88.7 fl (80-96); MEAN PLT VOLUME 10.2 fl (7.5-11.1); NEUT % 92.4 % (42.8-82.8); PLATELET COUNT 89 K/MM3 (134-434); RBC 3.12 M/mm3 (4.00-5.60); RDW 18.6 % (11.9-15.9); WHITE BLOOD COUNT 16.7 K/mm3 (4.0-10.0)
[2019-07-22 10:37] LABS: ALBUMIN 1.5 g/dl (3.4-5.0); BILIRUBIN,TOTAL 8.9 mg/dL (0.2-1); BLOOD UREA NITROGEN 34.6 mg/dL (7-18); CALCIUM 7.9 mg/dL (8.5-10.1); POTASSIUM 3.8 mmol/L (3.5-5.1)
--- NOTE | 2019-07-22 11:07 | PN ---
Progress Note, Physician Chief Complaint: ESRD on HD Elevated LFTs Biliary sepsis History of Present Illness: In dialysis Septic now Febrile last evening, + leukocytosis biliary stent replaced by IR - Current Medication List Current Medications: Active Medications Acetaminophen (Tylenol -) 650 mg PO Q6H PRN PRN Reason: PAIN LEVEL 1-5 Last Admin: 07/21/19 21:48 Dose: 650 mg Aspirin (Asa -) 81 mg PO DAILY [facility] Last Admin: 07/21/19 09:35 Dose: 81 mg Atorvastatin Calcium (Lipitor -) 80 mg PO HS [facility] Last Admin: 07/21/19 21:48 Dose: 80 mg Clopidogrel Bisulfate (Plavix -) 75 mg PO DAILY [facility] Last Admin: 07/19/19 11:26 Dose: Not Given Dextrose (D50w (Vial) -) 25 gm IVPUSH Q4H PRN PRN Reason: HYPOGLYCEMIA Last Admin: 07/17/19 02:57 Dose: 25 gm Ferrous Sulfate (Feosol -) 325 mg PO DAILY [facility] Last Admin: 07/21/19 09:35 Dose: 325 mg Hydrocortisone (Hytone 0.5% Cream -) 1 applic TP DAILY PRN PRN Reason: FOR ITCHING Last Admin: 07/21/19 09:59 Dose: 1 applic Metronidazole (Flagyl 500mg Premixed Ivpb -) 500 mg in 100 mls @ 100 mls/hr IVPB Q8H-IV [facility] Levofloxacin (Levaquin 250 Mg Premixed Ivpb -) 250 mg in 50 mls @ 100 mls/hr IVPB Q48H [facility]; Protocol Sodium Chloride (Normal Saline -) 250 mls @ 3,000 mls/hr IV PRN PRN PRN Reason: Hypotension during Dialysis Stop: 07/23/19 09:37 Midodrine (Proamatine -) 5 mg PO TID-MID [facility] Last Admin: 07/22/19 10:08 Dose: 5 mg Pantoprazole Sodium (Protonix -) 40 mg PO DAILY [facility] Last Admin: 07/21/19 09:35 Dose: 40 mg Sevelamer Carbonate (Renvela -) 800 mg PO TIDCM [facility] Last Admin: 07/22/19 09:54 Dose: 800 mg Tamsulosin HCl (Flomax -) 0.4 mg PO DAILY@0830 [facility] Last Admin: 07/22/19 09:54 Dose: 0.4 mg - Objective Vital Signs: Vital Signs Temperature 98.0 F 07/22/19 10:00 Pulse Rate 98 H 07/22/19 10:00 Respiratory Rate 18 07/22/19 10:00 Blood Pressure 84/44 L 07/22/19 10:00 O2 Sat by Pulse Oximetry (%) 97 07/22/19 09:00 Constitutional: Yes: Well Nourished, No Distress, Calm HENT: Yes: Other (Icteric sclera) Cardiovascular: Yes: Regular Rate and Rhythm Respiratory: Yes: Regular Gastrointestinal: Yes: Normal Bowel Sounds, Soft Genitourinary: Yes: WNL Musculoskeletal: Yes: WNL Extremities: Yes: WNL Edema: No Peripheral Pulses WNL: Yes Integumentary: Yes: Jaundice Neurological: Yes: Alert, Oriented Psychiatric: Yes: Alert, Oriented Labs: CBC, BMP 07/22/19 09:25 07/22/19 09:25 INR, PTT INR 1.48 (0.83-1.09) H 07/14/19 22:00 Problem List - Problems (1) Anemia Assessment/Plan: -likely 2/2 to CKD -monitor trend -Iron stores are normal Problems reviewed: Yes Code(s): D64.9 - ANEMIA, UNSPECIFIED (2) Common bile duct (CBD) stricture Assessment/Plan: -s/p biliary stent replacement -LFT's mildly improved -Repeat labs in AM Problems reviewed: Yes Code(s): K83.1 - OBSTRUCTION OF BILE DUCT (3) ESRD (end stage renal disease) on dialysis Assessment/Plan: -nephrology on board -HD as per nephrology Problems reviewed: Yes Code(s): N18.6 - END STAGE RENAL DISEASE; Z99.2 - DEPENDENCE ON RENAL DIALYSIS (4) Elevated LFTs Assessment/Plan: -Seen by GI -Likely 2/2 to CBD stricture -replaced stent -monitor trend Problems reviewed: Yes Code(s): R94.5 - ABNORMAL RESULTS OF LIVER FUNCTION STUDIES (5) Sepsis Assessment/Plan: -IV abx -ID consult -Cultures pending -afebrile now Problems reviewed: Yes Code(s): A41.9 - SEPSIS, UNSPECIFIED ORGANISM Assessment/Plan see problem list
--- NOTE | 2019-07-22 11:34 | PN ---
Progress Note, Physician History of Present Illness: S/P REPLACEMENT OF CHOLECYSTOSTOMY TUBE SPIKED TEMP 101.8 AWAKE, ALERT IN BED RECEIVING HD OFFERS NO COMPLAINTS JAUNDICED RASH RESOLVED - Current Medication List Current Medications: Active Medications Acetaminophen (Tylenol -) 650 mg PO Q6H PRN PRN Reason: PAIN LEVEL 1-5 Last Admin: 07/21/19 21:48 Dose: 650 mg Aspirin (Asa -) 81 mg PO DAILY [facility] Last Admin: 07/21/19 09:35 Dose: 81 mg Atorvastatin Calcium (Lipitor -) 80 mg PO HS [facility] Last Admin: 07/21/19 21:48 Dose: 80 mg Clopidogrel Bisulfate (Plavix -) 75 mg PO DAILY [facility] Last Admin: 07/19/19 11:26 Dose: Not Given Dextrose (D50w (Vial) -) 25 gm IVPUSH Q4H PRN PRN Reason: HYPOGLYCEMIA Last Admin: 07/17/19 02:57 Dose: 25 gm Ferrous Sulfate (Feosol -) 325 mg PO DAILY [facility] Last Admin: 07/21/19 09:35 Dose: 325 mg Hydrocortisone (Hytone 0.5% Cream -) 1 applic TP DAILY PRN PRN Reason: FOR ITCHING Last Admin: 07/21/19 09:59 Dose: 1 applic Metronidazole (Flagyl 500mg Premixed Ivpb -) 500 mg in 100 mls @ 100 mls/hr IVPB Q8H-IV [facility] Levofloxacin (Levaquin 250 Mg Premixed Ivpb -) 250 mg in 50 mls @ 100 mls/hr IVPB Q48H [facility]; Protocol Sodium Chloride (Normal Saline -) 250 mls @ 3,000 mls/hr IV PRN PRN PRN Reason: Hypotension during Dialysis Stop: 07/23/19 09:37 Midodrine (Proamatine -) 5 mg PO TID-MID [facility] Last Admin: 07/22/19 10:08 Dose: 5 mg Pantoprazole Sodium (Protonix -) 40 mg PO DAILY [facility] Last Admin: 07/21/19 09:35 Dose: 40 mg Sevelamer Carbonate (Renvela -) 800 mg PO TIDCM [facility] Last Admin: 07/22/19 09:54 Dose: 800 mg Tamsulosin HCl (Flomax -) 0.4 mg PO DAILY@0830 [facility] Last Admin: 07/22/19 09:54 Dose: 0.4 mg - Objective Vital Signs: Vital Signs Temperature 98.0 F 07/22/19 10:00 Pulse Rate 98 H 07/22/19 10:00 Respiratory Rate 18 07/22/19 10:00 Blood Pressure 84/44 L 07/22/19 10:00 O2 Sat by Pulse Oximetry (%) 97 07/22/19 09:00 Constitutional: Yes: No Distress Eyes: Yes: Sclera Icterus Cardiovascular: Yes: Regular Rate and Rhythm, S1, S2 Respiratory: Yes: CTA Bilaterally Gastrointestinal: Yes: Normal Bowel Sounds, Soft. No: Tenderness Edema: Yes Integumentary: Yes: Other (DIALYSIS CATHETER R CHEST + BILIARY DRAIN WITH CLEAR BILE) Labs: CBC, BMP 07/22/19 09:25 07/22/19 09:25 INR, PTT INR 1.48 (0.83-1.09) H 07/14/19 22:00 Assessment/Plan FEVER/ LEUKOCYTOSIS S/P PERCUTANEOUS DRAIN EXCHANGE PCN ALLERGY REPEAT C/S OBTAINED RESUME ANTIBIOTICS VANCO/ AZTREONAM/ FLAGYL ADJUSTED FOR ESRD
[2019-07-22] MEDS ORDERED: VANCOMYCIN 1 GRAM (PRE-DOCKED) 1,000 MG/250 ML BAG IVPB ONE (11:37)
--- NOTE | 2019-07-22 11:49 | PN ---
Progress Note, Physician History of Present Illness: pulmonary awake on hd,c/o nausea,-sob,-cp,hypotensive - Current Medication List Current Medications: Active Medications Acetaminophen (Tylenol -) 650 mg PO Q6H PRN PRN Reason: PAIN LEVEL 1-5 Last Admin: 07/21/19 21:48 Dose: 650 mg Aspirin (Asa -) 81 mg PO DAILY [facility] Last Admin: 07/21/19 09:35 Dose: 81 mg Atorvastatin Calcium (Lipitor -) 80 mg PO HS [facility] Last Admin: 07/21/19 21:48 Dose: 80 mg Clopidogrel Bisulfate (Plavix -) 75 mg PO DAILY [facility] Last Admin: 07/19/19 11:26 Dose: Not Given Dextrose (D50w (Vial) -) 25 gm IVPUSH Q4H PRN PRN Reason: HYPOGLYCEMIA Last Admin: 07/17/19 02:57 Dose: 25 gm Ferrous Sulfate (Feosol -) 325 mg PO DAILY [facility] Last Admin: 07/21/19 09:35 Dose: 325 mg Hydrocortisone (Hytone 0.5% Cream -) 1 applic TP DAILY PRN PRN Reason: FOR ITCHING Last Admin: 07/21/19 09:59 Dose: 1 applic Metronidazole (Flagyl 500mg Premixed Ivpb -) 500 mg in 100 mls @ 100 mls/hr IVPB Q8H-IV [facility] Sodium Chloride (Normal Saline -) 250 mls @ 3,000 mls/hr IV PRN PRN PRN Reason: Hypotension during Dialysis Stop: 07/23/19 09:37 Vancomycin HCl 1,000 mg/ (Dextrose) 250 mls @ 166.667 mls/hr IVPB ONCE ONE; Protocol Stop: 07/22/19 13:06 Aztreonam 0.5 gm/ Dextrose 50 mls @ 100 mls/hr IVPB Q12H [facility]; Protocol Midodrine (Proamatine -) 5 mg PO TID-MID [facility] Last Admin: 07/22/19 10:08 Dose: 5 mg Pantoprazole Sodium (Protonix -) 40 mg PO DAILY [facility] Last Admin: 07/21/19 09:35 Dose: 40 mg Sevelamer Carbonate (Renvela -) 800 mg PO TIDCM [facility] Last Admin: 07/22/19 09:54 Dose: 800 mg Tamsulosin HCl (Flomax -) 0.4 mg PO DAILY@0830 [facility] Last Admin: 07/22/19 09:54 Dose: 0.4 mg - Objective Vital Signs: Vital Signs Temperature 98.0 F 07/22/19 10:00 Pulse Rate 98 H 07/22/19 10:00 Respiratory Rate 18 07/22/19 10:00 Blood Pressure 84/44 L 07/22/19 10:00 O2 Sat by Pulse Oximetry (%) 97 07/22/19 09:00 Constitutional: Yes: Well Nourished, Calm Eyes: Yes: WNL HENT: Yes: WNL Neck: Yes: WNL Cardiovascular: Yes: Regular Rate and Rhythm, S1, S2 Respiratory: Yes: CTA Bilaterally Gastrointestinal: Yes: Normal Bowel Sounds, Soft Extremities: Yes: WNL Edema: No Integumentary: Yes: Jaundice Labs: CBC, BMP 07/22/19 09:25 07/22/19 09:25 INR, PTT INR 1.48 (0.83-1.09) H 07/14/19 22:00 Problem List - Problems (1) Anemia Code(s): D64.9 - ANEMIA, UNSPECIFIED (2) CAD (coronary artery disease) Code(s): I25.10 - ATHSCL HEART DISEASE OF [place] CORONARY ARTERY W/O ANG PCTRS (3) ESRD (end stage renal disease) on dialysis Code(s): N18.6 - END STAGE RENAL DISEASE; Z99.2 - DEPENDENCE ON RENAL DIALYSIS (4) Elevated LFTs Code(s): R94.5 - ABNORMAL RESULTS OF LIVER FUNCTION STUDIES (5) Elevated lactic acid level Code(s): R79.89 - OTHER SPECIFIED ABNORMAL FINDINGS OF BLOOD CHEMISTRY (6) Rash and nonspecific skin eruption Code(s): R21 - RASH AND OTHER NONSPECIFIC SKIN ERUPTION Assessment/Plan Assessment/Plan Elevated LFTs improving ESRD on HD Drug Rash Atelectasis Lactic Acidosis DM CAD +Troponins likely [place]and Ischemia GERD BPH Obstructive jaundice s/p biliary drain - monitor lytes - trend LFTs - HD per renal - DVT prophylaxis - fluids as per renal - abx as per ID DR LORA
[2019-07-22] MEDS ORDERED: AZTREONAM 0.5 GM in DEXTROSE 5%-WATER - 50 ML IVPB SCH (12:00)
[2019-07-22 12:22] LABS: ANISOCYTOSIS 1+; MACROCYTOSIS 0; PLATELET ESTIMATE DECREASED; TARGET CELLS 1+
--- NOTE | 2019-07-22 13:37 | PN ---
Progress Note (short form) - Note Progress Note: Renal follow up for ESRD on HD Seen and examined during dialysis BP is low 70's systolic, pt complains of nausea. UF was 0.5L will terminate Tx early denies any fever, chills, chest pain, abdominal pain. Vital Signs Temperature 98.0 F 07/22/19 10:00 Pulse Rate 98 H 07/22/19 10:00 Respiratory Rate 18 07/22/19 10:00 Blood Pressure 84/44 L 07/22/19 10:00 O2 Sat by Pulse Oximetry (%) 97 07/22/19 09:00 Intake & Output 07/19/19 07/20/19 07/21/19 07/22/19 23:59 23:59 23:59 23:59 Intake Total 1000 1755 400 840 Output Total 1110 Balance 1000 645 400 840 Weight 75.251 kg NAD, Jaundice RRR CTA, no rales or wheeze soft NT/ND rash improving no LE edema, clubbing or cyanosis CBC, BMP 07/22/19 09:25 07/22/19 09:25 Current Medications Acetaminophen (Tylenol -) 650 mg PO Q6H PRN PRN Reason: PAIN LEVEL 1-5 Last Admin: 07/21/19 21:48 Dose: 650 mg Albumin Human (Albumin Human 25%) 12.5 gm IVPB Q30M [facility] Stop: 07/22/19 14:16 Aspirin (Asa -) 81 mg PO DAILY [facility] Last Admin: 07/21/19 09:35 Dose: 81 mg Atorvastatin Calcium (Lipitor -) 80 mg PO HS [facility] Last Admin: 07/21/19 21:48 Dose: 80 mg Clopidogrel Bisulfate (Plavix -) 75 mg PO DAILY [facility] Last Admin: 07/19/19 11:26 Dose: Not Given Dextrose (D50w (Vial) -) 25 gm IVPUSH Q4H PRN PRN Reason: HYPOGLYCEMIA Last Admin: 07/17/19 02:57 Dose: 25 gm Ferrous Sulfate (Feosol -) 325 mg PO DAILY [facility] Last Admin: 07/21/19 09:35 Dose: 325 mg Hydrocortisone (Hytone 0.5% Cream -) 1 applic TP DAILY PRN PRN Reason: FOR ITCHING Last Admin: 07/21/19 09:59 Dose: 1 applic Metronidazole (Flagyl 500mg Premixed Ivpb -) 500 mg in 100 mls @ 100 mls/hr IVPB Q8H-IV [facility] Sodium Chloride (Normal Saline -) 250 mls @ 3,000 mls/hr IV PRN PRN PRN Reason: Hypotension during Dialysis Stop: 07/23/19 09:37 Aztreonam 0.5 gm/ Dextrose 50 mls @ 100 mls/hr IVPB 0000,1200 [facility]; Protocol Sodium Chloride (Normal Saline -) 250 mls @ 3,000 mls/hr IV PRN PRN PRN Reason: Hypotension during Dialysis Stop: 07/23/19 12:14 Midodrine (Proamatine -) 5 mg PO TID-MID [facility] Last Admin: 07/22/19 12:21 Dose: 5 mg Pantoprazole Sodium (Protonix -) 40 mg PO DAILY [facility] Last Admin: 07/21/19 09:35 Dose: 40 mg Sevelamer Carbonate (Renvela -) 800 mg PO TIDCM [facility] Last Admin: 07/22/19 09:54 Dose: 800 mg Tamsulosin HCl (Flomax -) 0.4 mg PO DAILY@0830 [facility] Last Admin: 07/22/19 09:54 Dose: 0.4 mg 88 year old gentleman with history of CKD with ERNIE now on dialysis (6 weeks), biliary obstruction with indwelling biliary drain, pancreatitis, anemia, CAD, BPH, GERD who who presented from [facility] with diffuse erythematous rash after being on antibiotics for suspected PNA. 1. ESRD on HD/ERNIE on CKD on dialysis 2. Erythemaous rash on skin, possible drug rash (now resoloved) 3. Suspected PNA 4. Anemia 5. DM type 2 will terminate dialysis early today as pt has symptomatic hypotension Continue midodrine TID continue Abx as per ID GI follow up next planned dialysis is Saturday Thank you Brandon Perez DO
[2019-07-22] MEDS: ALBUMIN HUMAN 25% 12.5 GM/50 ML VIAL IVPB SCH ×4 (13:58→14:02)
[2019-07-22] MEDS: FERROUS SO4 325 MG TABLET (FP) PO SCH (14:45)
[2019-07-22] MEDS: ASPIRIN 81 MG CHEWABLE TABLETS PO SCH (14:45)
[2019-07-22] MEDS ORDERED: PT OWN MED DRAWER 7, Y5N ONE (15:10)
[2019-07-22] MEDS: CLOPIDOGREL BISULFATE 75 MG TABLET (FP) PO SCH (15:13)
[2019-07-22] MEDS: PANTOPRAZOLE 40 MG TABLET PO SCH (15:13)
[2019-07-22 18:59] VITALS: TEMP 97.8
--- NOTE | 2019-07-22 23:15 | RAPID ---
Physical Examination Vital Signs: Constitutional: Yes: Other Eyes: Yes: Other Labs: Rapid Response - Rapid Response Assessment: Rapid response called at 22:50 due to hypotension (69/40) and unresponsiveness to sternal rub. Pt found to be agonally breathing with femoral pulses palpable. Pt was given IV NS 1 L bolus and EKG showing bradycardia (40's) and nsr. I spoke with the who states she would not like any aggressive measures including: DNR, DNI, and no central lines. After speaking with the and upon reevaluation of patient - pt found to have sluggish pupils with no corneal reflex response - was given vigrous sternal rub with no response - no breath sounds - no pulse present on ausculation or palpation - EKG showing asystole prior to time of - 23:10 patient was pronounced . - Call placed to family notifying them. - Primary team made aware (SANDRA Tirado)
[2019-07-23 00:32] VITALS: BP 45/25; PULSE 70
--- NOTE | 2019-07-24 14:24 | EKG ---
Test Reason : Blood Pressure : / mmHG Vent. Rate : 026 BPM Atrial Rate : 037 BPM P-R Int : 000 ms QRS Dur : 156 ms QT Int : 744 ms P-R-T Axes : 000 067 -62 degrees QTc Int : 488 ms IDIOVENTRICULAR RHYTHM WITH OCCASIONAL PREMATURE VENTRICULAR COMPLEXES WITH VENTRICULAR ESCAPE COMPLEXES RIGHT BUNDLE BRANCH BLOCK T WAVE ABNORMALITY, CONSIDER INFEROLATERAL ISCHEMIA ABNORMAL ECG WHEN COMPARED WITH ECG OF 14-JUL-2019 20:21, IDIOVENTRICULAR RHYTHM HAS REPLACED WIDE QRS RHYTHM VENT. RATE HAS DECREASED BY 51 BPM Confirmed by TAWANA MUÑOZ MD ([id number]) on 07/24/2019 2:24:42 PM Referred By: Confirmed By:TAWANA MUÑOZ MD
--- NOTE | 2019-09-04 14:03 | EKG ---
Test Reason : Blood Pressure : / mmHG Vent. Rate : 120 BPM Atrial Rate : 120 BPM P-R Int : 000 ms QRS Dur : 120 ms QT Int : 386 ms P-R-T Axes : 000 -45 077 degrees QTc Int : 545 ms UNDETERMINED RHYTHM LEFT AXIS DEVIATION SEPTAL INFARCT , AGE UNDETERMINED ABNORMAL ECG Confirmed by TAWANA MUÑOZ MD ([id number]) on 09/04/2019 2:03:00 PM Referred By: Confirmed By:TAWANA MUÑOZ MD
== END 2019-07-22 11:10 | disposition expired | DRG 444 ==
LOC: JER 20:04 → JERBED 07-15 01:53 → J5S 07-15 14:43 → OBSVTOIN 07-16 17:15
PROVIDERS: ADMIT Family Medicine; ATTEND Family Medicine
PROC: BF10YZZ Fluoroscopy of Bile Ducts using Other Contrast (ICD-10-PCS; 2019-07-17)
PROC: 0F2BX0Z Change Drainage Device in Hepatobiliary Duct, External Approach (ICD-10-PCS; principal; 2019-07-21)
DX: K83.1 Obstruction of bile duct (principal); J18.9 Pneumonia, unspecified organism; N18.6 End stage renal disease; A41.9 Sepsis, unspecified organism; I12.0 Hypertensive chronic kidney disease with stage 5 chronic kidney disease or end stage renal disease; R17 Unspecified jaundice; E87.2 Acidosis; I24.8 Other forms of acute ischemic heart disease; J98.11 Atelectasis; N17.9 Acute kidney failure, unspecified; J90 Pleural effusion, not elsewhere classified; I25.10 Atherosclerotic heart disease of native coronary artery without angina pectoris; N40.0 Benign prostatic hyperplasia without lower urinary tract symptoms; K21.9 Gastro-esophageal reflux disease without esophagitis; D64.9 Anemia, unspecified; E11.22 Type 2 diabetes mellitus with diabetic chronic kidney disease; E78.00 Pure hypercholesterolemia, unspecified; R94.7 Abnormal results of other endocrine function studies; I95.9 Hypotension, unspecified; R21 Rash and other nonspecific skin eruption; R79.89 Other specified abnormal findings of blood chemistry; R50.9 Fever, unspecified; D72.829 Elevated white blood cell count, unspecified; E11.649 Type 2 diabetes mellitus with hypoglycemia without coma; Z99.2 Dependence on renal dialysis; Z88.0 Allergy status to penicillin
CPT/HCPCS: 36415; 47531; 47536; 71045-TC-FY; 75984-TC-RT-FY; 76000-TC-FY; 76700-TC; 80048; 80053; 80076; 82378; 82607; 82728; 82962; 83036; 83540; 83550; 83605; 84100; 84439; 84443; 84484; 85025; 85027; 85610; 85730; 86301; 86803; 87040; 87340; 93005; 93010; 99284-25; C1729; C1769; C1887; G0378; J0885; J7030; P9047